=== PATIENT | female | born 1955 | race African-American/Black ===

== ENCOUNTER 2023-08-07 09:52 | Outpatient (REF) | payer OTHER, SELFPAY ==
--- NOTE | ~2023-08-07 | XR_ITS ---
X-RAY BILATERAL KNEES CLINICAL HISTORY: Pain. COMPARISON: No relevant prior studies are available for comparison. TECHNIQUE: Lateral and sunrise views of both knees. AP standing view of both knees. FINDINGS: No fracture or subluxation. Severe joint space narrowing and subcortical sclerosis of the medial and patellofemoral compartments in both knees, slightly more advanced in the right knee. Very prominent tricompartmental marginal osteophytes bilaterally. Chondrocalcinosis in the lateral compartment of the right knee. Small joint effusion in the right knee. XR/XR knee RT 3V IMPRESSION: 1. No acute fractures or malalignment. 2. Severe bilateral osteoarthritis, slightly more advanced in the right knee. 3. Small right knee joint effusion.
--- NOTE | ~2023-08-07 | XR_ITS ---
X-RAY BILATERAL KNEES CLINICAL HISTORY: Pain. COMPARISON: No relevant prior studies are available for comparison. TECHNIQUE: Lateral and sunrise views of both knees. AP standing view of both knees. FINDINGS: No fracture or subluxation. Severe joint space narrowing and subcortical sclerosis of the medial and patellofemoral compartments in both knees, slightly more advanced in the right knee. Very prominent tricompartmental marginal osteophytes bilaterally. Chondrocalcinosis in the lateral compartment of the right knee. Small joint effusion in the right knee. XR/XR knee LT 3V IMPRESSION: 1. No acute fractures or malalignment. 2. Severe bilateral osteoarthritis, slightly more advanced in the right knee. 3. Small right knee joint effusion.
== END 2023-08-07 09:53 | disposition home or self-care (01) ==
LOC: HO.HOSX 09:52
PROVIDERS: Visit Provider Orthopaedic Surgery
DX: M17.0 Bilateral primary osteoarthritis of knee (principal)
CPT/HCPCS: 73562; 99202

== ENCOUNTER 2023-08-07 10:20 | Outpatient (AMB) | payer OTHER, SELFPAY ==
--- NOTE | 2023-08-07 10:31 | A.OFFVIS_ITS ---
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 Patient reports that she has had ongoing bilateral knee pain for years now. right worse than left. she has increased pain when ambulating stairs. She takes Tylenol which helps and Voltaren which does not help. She has taken falls on multiple occasions due to instability. She does hear a cracking and popping in the knee. PFSH Surgical History (Updated 08/07/23 @ 10:41 by Nora Mendoza CMA) History of hysterectomy H/O bariatric surgery Hx of cholecystectomy Social History (Updated 08/07/23 @ 10:41 by Nora Mendoza CMA) Current occupational status: retired Physical Exam Vital Signs: BMI result Body Mass Index 36.3 Const General: cooperative, healthy appearing, no acute distress and well groomed Orientation/consciousness: oriented to person and oriented to place HEENT Head: Yes normal to inspection, Yes normocephalic and Yes atraumatic Eyes General: appearance normal, both eyes and all related structures Alignment and Position: alignment normal Conjunctivae: conjunctivae normal EOM: EOMs intact bilaterally Neck Neck: Yes normal visual inspection and Yes trachea midline Resp Other: No rerpiratory distress Effort & Inspection: normal respiratory effort and able to speak in complete sentences GI Other: No abdominal distension Back/Spine/Pelvis Cervical Spine: normal cervical lordosis and cervical ROM normal Skin General skin exam: no rashes or lesions noted Neuro General: oriented to person, oriented to place and gait normal Extrem Other: Varus alignement bilateral knees R>L mikld medial joint line tenderness minimal gait antalgia right knee varus thrust Results Reviewed Results Reviewed: I personally reviewed relevant radiographs. Severe varus pattern OA bilateral knees Assessment & Plan Assessment & Plan (1) Bilateral primary osteoarthritis of knee: Code(s): M17.0 - Bilateral primary osteoarthritis of knee Plan: Severe radiographic evidence of OA with suprisinbgly mild symptoms. Discussed treatment options. She will see me if she wants anything but, at this time, she does not want any intervention. Orders: Orders XR knee standing BI 08/07/23 M25.569 - Pain in unspecified knee Coding Level of Care Code New Pt Level 3 (02711) Diagnoses Bilateral primary osteoarthritis of knee M17.0
[2023-08-07 10:37] VITALS: BMI 36.3
== END 2023-08-07 11:01 | disposition home or self-care (01) ==
PROVIDERS: Visit Provider Orthopaedic Surgery
DX: M17.0 Bilateral primary osteoarthritis of knee (principal)
CPT/HCPCS: 99203

== ENCOUNTER 2024-04-11 21:18 | Emergency (ER) | payer OTHER, SELFPAY ==
--- NOTE | 2024-04-11 | ECG_ITS ---
Test Reason : CHEST PAIN Blood Pressure : / mmHG Vent. Rate : 081 BPM Atrial Rate : 081 BPM P-R Int : 142 ms QRS Dur : 080 ms QT Int : 408 ms P-R-T Axes : 058 022 043 degrees QTc Int : 473 ms Normal sinus rhythm Nonspecific ST and T wave abnormality Abnormal ECG No previous ECGs available Referred By: Generic ED Physician Electronically Signed By:DOMINIQUE GODWIN
--- NOTE | ~2024-04-11 | CT_ITS ---
CT/CT abdomen pelvis w IV con IMPRESSION: Small umbilical and supraumbilical hernias containing fat. No evidence of bowel obstruction. Status post cholecystectomy. Mild intrahepatic and extrahepatic biliary duct dilatation. Small right renal cyst. Fleischner guidelines were followed. Electronically signed by: Maury Potter MD 04/12/2024 01:01 AM [facility] EXAMINATION: CT ABDOMEN AND PELVIS WITH CONTRAST CLINICAL INFORMATION: Pain. Concern for internal hernia. COMPARISON: None available. TECHNIQUE: Multidetector volumetric images were obtained from the superior aspect of the liver through the pubic symphysis following administration 85 mL of Omnipaque 350 intravenous contrast. Sagittal and coronal reformatted images were obtained on the technologist's workstation. Oral contrast: No This CT examination was performed using dose optimization techniques as appropriate, variously including the following: *Automated exposure control *Adjustment of mA and/or kV according to patient size (this includes techniques or standardized protocols for targeted exams where dose is matched to indication/reason for exam; i.e. extremities or head) *Use of iterative reconstruction technique DLP: 646 mGy-cm FINDINGS: LUNG BASES: The visualized lung bases are unremarkable. LIVER, GALLBLADDER, AND BILIARY TREE: The liver is normal in size, shape, and attenuation. No focal liver lesions are seen. There is mild intrahepatic biliary duct dilatation. The common bile duct measures up to 1 cm. There has been a prior cholecystectomy. PANCREAS: Unremarkable. SPLEEN: Unremarkable. ADRENAL GLANDS: Unremarkable. KIDNEYS AND URETERS: The kidneys are normal in size, shape, and attenuation. No hydronephrosis, hydroureter, or calculi seen. No perinephric stranding. There is a subcentimeter cyst mid pole right kidney. BLADDER: Unremarkable. GASTROINTESTINAL TRACT: The small and large bowel are unremarkable. The appendix is unremarkable. ABDOMINAL WALL: There is a minimal umbilical hernia containing fat. There is a small supraumbilical hernia also containing fat. LYMPH NODES: Normal. VASCULAR: Unremarkable. PELVIC VISCERA: Unremarkable. OSSEOUS STRUCTURES: Unremarkable.
[2024-04-11 21:33] VITALS: BP 171/88; BP 188/90; PULSE 80; PULSE 90; RESP 19; TEMP 36.8; O2SAT 98; O2SAT 99; BMI 32.1
[2024-04-11 21:52] LABS: MANUAL DIFF FLAG NO
[2024-04-11 21:53] LABS: Basophils Percent Auto 0.2 % (0-2); Hematocrit 37.6 % (37.0-47.0); Hemoglobin 12.5 g/dl (12.0-16.0); Imm Gran Abs Auto 0.02 X10*3/uL (0.00-0.03); Imm Gran Pct Auto 0.2 % (0.0-0.4); Lymphocytes Absolute Auto 0.7 X10*3/uL (1.2-4.9); Lymphocytes Percent Auto 8.5 % (20-40); Mean Corpuscular HGB Conc 33.2 g/dl (31.0-35.0); Mean Corpuscular Hemoglobin 30.6 pg (27.0-33.0); Mean Corpuscular Volume 91.9 fL (80.0-98.0); Mean Platelet Volume 8.4 fL (9.4-12.3); Monocytes Absolute Auto 0.3 X10*3/uL (0.1-1.2); Monocytes Percent Auto 3.1 % (2-11); Neutrophils Absolute Auto 7.1 x10*3/uL (2.0-8.3); Platelet Count 274 X10*3/uL (160-400); Red Blood Count 4.09 X10*6/uL (4.20-5.50); Red Cell Distribution Width 12.7 % (11.0-16.0)
[2024-04-11 22:03] LABS: Appearance Urine Clear; Color Urine Yellow; Glucose Urine UA 100 mg/dL (Negative); Leukocyte Esterase Urine Negative (Negative); Nitrite Urine Negative (Negative); Specific Gravity - Urine 1.015 (1.005-1.025); Urine Blood Negative (Negative); Urine Ketones 15 mg/dL (Negative); Urine Protein Negative (Neg-Trace)
[2024-04-11] MEDS: ondansetron HCL 4 MG/2 ML VIAL IVPUSH (22:04)
[2024-04-11 22:05] LABS: Bacteria Urine None Seen (None Seen); Hyaline Casts Urine 0-2 /LPF (0-2); RBC Urine 0-2 /HPF (0-2); Squamous Epithelial Cell Urine 0-2 /HPF (0-2); WBC Urine 0-5 /HPF (0-5)
--- NOTE | 2024-04-11 22:13 | ED_ITS ---
HPI - Abdominal Pain General Chief Complaint: Abdominal Pain Stated Complaint: Increasing Ab pain, severe vomiting all day Time Seen by Provider: 04/11/24 21:59 Source: patient Mode of arrival: EMS Limitations: no limitations History of Present Illness ED Provider: stan STOKES narrative: Patient is 69 years old history of hypertension depression status post cholecystectomy and gastric bypass surgery about 5 years ago comes here for acute onset of mid abdominal pain started around 06:00 followed by multiple vomiting episodes and mid abdominal pain had a small bowel movement not passing enough gas now no history of any complication post gastric bypass no fever no chills Related Data Home Medications ?Medication ?Instructions ?Recorded ?Confirmed atenolol 100 mg tablet 100 mg PO DAILY 08/07/23 semaglutide 1 mg/dose (4 mg/3 mL) 1 mg subcut QWEEK 08/07/23 subcutaneous pen injector (Ozempic) valsartan 80 mg tablet 80 mg PO DAILY 08/07/23 venlafaxine 150 mg 150 mg PO DAILY 08/07/23 capsule,extended release 24 hr Previous Rx's ?Medication ?Instructions ?Recorded ondansetron 4 mg disintegrating 4 mg PO Q6-8H PRN nausea and 04/12/24 tablet vomiting #7 tabs Allergies Allergy/AdvReac Type Severity Reaction Status Date / Time No Known Allergies Allergy Verified 04/11/24 21:38 Review of Systems Review of Systems Yes all other systems are reviewed and are negative [facility] Past Medical History Medical History (Updated 04/12/24 @ 03:05 by Brandon Hussein MD) Depression Hypertension Surgical History History of hysterectomy H/O bariatric surgery Hx of cholecystectomy Social History Social History Smoked in Last 30 Days: No Use of substances other than those prescribed or required for medical reasons: No Advance Directives: No Advance Directives Information Provided: No Do you have a plan to hurt others: No Plan Current occupational status: retired Physical Exam ED Vital Signs: Vital Signs - 24 hr 04/11/24 22:33 04/12/24 03:02 04/12/24 03:29 Temperature 98.1 F 98.1 F Pulse Rate 78 78 Respiratory Rate 18 17 17 Blood Pressure 150/87 H 150/87 H Pulse Oximetry 96 96 Oxygen Delivery Method Room Air Room Air BMI result Body Mass Index 32.1 Appearance: Alert. Oriented X3. No acute distress. Eyes: No pallor or icterus ENT: Pharynx normal. Oral Mucosa moist Neck: Normal inspection. Neck supple. CVS: Normal heart rate and rhythm. Pulses normal. Respiratory: No respiratory distress. Equal air entry bilateral, no wheezing/rales/rhonchi Abdomen: Soft and tenderness in mid abdomen diffuse guarding no rebound tenderness Bowel sounds are present, no mass palpable, no CVA tenderness Skin: Skin warm and dry. Normal skin color. Normal skin turgor. Extremities: No lower extremity edema. No calf tenderness Neuro: Oriented X 3. Medical Decision Making Medical Decision Making [facility] Narrative: Patient's diffuse abdominal pain status contrast negative labs are stable felt much better after IV discharge patient home advised to follow with bariatric surgeon/PCP Differential Diagnosis Differential Diagnoses: The differential diagnosis associated with the presentation includes Small bowel obstruction/internal hernia Lab Data [facility] Lab Attestation statement: I reviewed the patient's lab results. 04/11/24 21:48 04/11/24 22:35 Labs: Lab Results 04/11/24 04/11/24 04/11/24 Range/Units 21:41 21:48 21:56 WBC 8.0 (4.8-10.8) X10*3/uL RBC 4.09 L (4.20-5.50) X10*6/uL Hgb 12.5 (12.0-16.0) g/dl Hct 37.6 (37.0-47.0) % MCV 91.9 (80.0-98.0) fL MCH 30.6 (27.0-33.0) pg MCHC 33.2 (31.0-35.0) g/dl RDW 12.7 (11.0-16.0) % Plt Count 274 (160-400) X10*3/uL MPV 8.4 L (9.4-12.3) fL Immature Gran % (Auto) 0.2 (0.0-0.4) % Neut % (Auto) 88.0 H (45-73) % Lymph % (Auto) 8.5 L (20-40) % [place] % (Auto) 3.1 (2-11) % Eos % (Auto) 0.0 (0-4) % Baso % (Auto) 0.2 (0-2) % Lymph # (Auto) 0.7 L (1.2-4.9) X10*3/uL [place] # (Auto) 0.3 (0.1-1.2) X10*3/uL Eos # (Auto) 0.0 (0.0-0.4) X10*3/uL Baso # (Auto) 0.0 (0.0-0.2) X10*3/uL Abs Immat Gran (auto) 0.02 (0.00-0.03) X10*3/uL Absolute Neuts (auto) 7.1 (2.0-8.3) x10*3/uL Absolute Nucleated RBC 0.000 (0.0-0.012) X10*3/uL Nucleated RBC % (auto) 0.0 (0.0-0.2) /100WBC Sodium (135-145) mmol/L Potassium (3.3-5.1) mmol/L Chloride (96-108) mmol/L Carbon Dioxide (22-29) mmol/L Anion Gap (12-20) BUN (9-16) mg/dL Creatinine (0.5-1.4) mg/dL Estim Creat Clear Calc Estimated GFR Random Glucose (60-115) mg/dL Lactic Acid (0.5-2.0) mmol/L Lactic Acid F/U @ 2Hr (0.5-2.0) mmol/L Calcium (8.4-10.2) mg/dL Total Bilirubin (0.0-1.0) mg/dL AST (5-31) U/L ALT (0-31) U/L Alkaline Phosphatase (39-117) U/L Troponin I High Sens (<3.5-17.0) ng/L B-Natriuretic Peptide Cancelled Total Protein (6.5-8.0) g/dL Albumin (3.5-5.0) g/dL Lipase (8-78) U/L Urine Color Yellow Urine Appearance Clear Urine pH 8.0 (5.0-9.0) Ur Specific [place] 1.015 (1.005-1.025) Urine Protein Negative (Neg-Trace) mg/dL Urine Glucose (UA) 100 H (Negative) mg/dL Urine Ketones 15 (Negative) mg/dL Urine Blood Negative (Negative) Urine Nitrite Negative (Negative) Ur Leukocyte Esterase Negative (Negative) Urine RBC 0-2 (0-2) /HPF Urine WBC 0-5 (0-5) /HPF Ur Squamous Epith Cells 0-2 (0-2) /HPF Urine Bacteria None Seen (None Seen) Hyaline Casts 0-2 (0-2) /LPF Influenza Type A (PCR) NEGATIVE (Negative) Influenza Type B (PCR) NEGATIVE (Negative) RSV RNA Qual (PCR) NEGATIVE (Negative) SARS-CoV-2 RNA (RT-PCR) NEGATIVE (Negative) 04/11/24 04/12/24 Range/Units 22:35 01:13 WBC (4.8-10.8) X10*3/uL RBC (4.20-5.50) X10*6/uL Hgb (12.0-16.0) g/dl Hct (37.0-47.0) % MCV (80.0-98.0) fL MCH (27.0-33.0) pg MCHC (31.0-35.0) g/dl RDW (11.0-16.0) % Plt Count (160-400) X10*3/uL MPV (9.4-12.3) fL Immature Gran % (Auto) (0.0-0.4) % Neut % (Auto) (45-73) % Lymph % (Auto) (20-40) % [place] % (Auto) (2-11) % Eos % (Auto) (0-4) % Baso % (Auto) (0-2) % Lymph # (Auto) (1.2-4.9) X10*3/uL [place] # (Auto) (0.1-1.2) X10*3/uL Eos # (Auto) (0.0-0.4) X10*3/uL Baso # (Auto) (0.0-0.2) X10*3/uL Abs Immat Gran (auto) (0.00-0.03) X10*3/uL Absolute Neuts (auto) (2.0-8.3) x10*3/uL Absolute Nucleated RBC (0.0-0.012) X10*3/uL Nucleated RBC % (auto) (0.0-0.2) /100WBC Sodium 140 (135-145) mmol/L Potassium 3.4 (3.3-5.1) mmol/L Chloride 105 (96-108) mmol/L Carbon Dioxide 22 (22-29) mmol/L Anion Gap 16 (12-20) BUN 8 L (9-16) mg/dL Creatinine 0.71 (0.5-1.4) mg/dL Estim Creat Clear Calc 79.3 Estimated GFR > 60 Random Glucose 119 H (60-115) mg/dL Lactic Acid 3.3 H* (0.5-2.0) mmol/L Lactic Acid F/U @ 2Hr 1.2 (0.5-2.0) mmol/L Calcium 9.1 (8.4-10.2) mg/dL Total Bilirubin 1.1 H (0.0-1.0) mg/dL AST 57 H (5-31) U/L ALT 31 (0-31) U/L Alkaline Phosphatase 75 (39-117) U/L Troponin I High Sens < 2.7 (<3.5-17.0) ng/L B-Natriuretic Peptide Total Protein 7.0 (6.5-8.0) g/dL Albumin 4.4 (3.5-5.0) g/dL Lipase 12 (8-78) U/L Urine Color Urine Appearance Urine pH (5.0-9.0) Ur Specific [place] (1.005-1.025) Urine Protein (Neg-Trace) mg/dL Urine Glucose (UA) (Negative) mg/dL Urine Ketones (Negative) mg/dL Urine Blood (Negative) Urine Nitrite (Negative) Ur Leukocyte Esterase (Negative) Urine RBC (0-2) /HPF Urine WBC (0-5) /HPF Ur Squamous Epith Cells (0-2) /HPF Urine Bacteria (None Seen) Hyaline Casts (0-2) /LPF Influenza Type A (PCR) (Negative) Influenza Type B (PCR) (Negative) RSV RNA Qual (PCR) (Negative) SARS-CoV-2 RNA (RT-PCR) (Negative) Independent Interpretation I performed an independent interpretation of an: CT Scan Radiology Impression Discussion of test interpretation with radiology: I have reviewed the radiologist's reading. Radiologist Impression: [address] [address] [address] Scan Report Signed Patient: Denise Renee MR#: [id number] : 1955 Acct:[id number] Age/Sex: 69 / F ADM Date: 04/11/24 Loc: HO.ED Attending Dr: Ordering Physician: Brandon Hussein MD Date of Service: 04/12/24 Procedure(s): CT abdomen pelvis w IV con Accession Number(s): [id number] cc: Physician,Unknown ; Brandon Hussein MD~ EXAMINATION: CT ABDOMEN AND PELVIS WITH CONTRAST CLINICAL INFORMATION: Pain. Concern for internal hernia. COMPARISON: None available. TECHNIQUE: Multidetector volumetric images were obtained from the superior aspect of the liver through the pubic symphysis following administration 85 mL of Omnipaque 350 intravenous contrast. Sagittal and coronal reformatted images were obtained on the technologist's workstation. Oral contrast: No This CT examination was performed using dose optimization techniques as appropriate, variously including the following: *Automated exposure control *Adjustment of mA and/or kV according to patient size (this includes techniques or standardized protocols for targeted exams where dose is matched to indication/reason for exam; i.e. extremities or head) *Use of iterative reconstruction technique DLP: 646 mGy-cm FINDINGS: LUNG BASES: The visualized lung bases are unremarkable. LIVER, GALLBLADDER, AND BILIARY TREE: The liver is normal in size, shape, and attenuation. No focal liver lesions are seen. There is mild intrahepatic biliary duct dilatation. The common bile duct measures up to 1 cm. There has been a prior cholecystectomy. PANCREAS: Unremarkable. SPLEEN: Unremarkable. ADRENAL GLANDS: Unremarkable. KIDNEYS AND URETERS: The kidneys are normal in size, shape, and attenuation. No hydronephrosis, hydroureter, or calculi seen. No perinephric stranding. There is a subcentimeter cyst mid pole right kidney. BLADDER: Unremarkable. GASTROINTESTINAL TRACT: The small and large bowel are unremarkable. The appendix is unremarkable. ABDOMINAL WALL: There is a minimal umbilical hernia containing fat. There is a small supraumbilical hernia also containing fat. LYMPH NODES: Normal. VASCULAR: Unremarkable. PELVIC VISCERA: Unremarkable. OSSEOUS STRUCTURES: Unremarkable. CT/CT abdomen pelvis w IV con IMPRESSION: Small umbilical and supraumbilical hernias containing fat. No evidence of bowel obstruction. Status post cholecystectomy. Mild intrahepatic and extrahepatic biliary duct dilatation. Small right renal cyst. Fleischner guidelines were followed. Electronically signed by: Maury Potter MD 04/12/2024 01:01 AM EST Medications Administered Discontinued Medications Generic Name Dose Route Start Last Admin Trade Name Freq PRN Reason Stop Dose Admin Lactated Ringer's 1,000 mls @ 999 mls/hr 04/11/24 22:30 04/12/24 00:03 Lr IV 04/11/24 23:30 Infused .Q1H1M IDNRA Infusion Piperacillin Sod/Tazobactam 50 mls @ 100 mls/hr 04/11/24 23:01 04/12/24 00:03 Sod 3.375 gm/ Sodium Chloride IV 04/11/24 23:30 Infused ONCE ONE Infusion Iohexol 85 ml 04/12/24 00:28 04/12/24 00:29 Iohexol 350 Mg/Ml 100 Ml Infus..Btl IV 04/12/24 00:29 85 ml ONCE ONE Administration Morphine Sulfate 4 mg 04/11/24 22:23 04/11/24 22:33 Morphine Sulfate 4 Mg/Ml Cartridge IVPUSH 04/11/24 22:24 4 mg ONCE ONE Administration Protocol Ondansetron HCl 4 mg 04/11/24 22:03 04/11/24 22:04 Ondansetron Hcl 4 Mg/2 Ml Vial IVPUSH 04/11/24 22:04 4 mg ONCE ONE Administration Discharge Plan Discharge Clinical Impression: Gastroenteritis Patient Disposition: Home, Self-Care Instructions: Acute Nausea and Vomiting (ED) Additional Instructions: Drink plenty of fluids Medicine for nausea as prescribed Follow with PCP as needed Your CT scan of the abdomen is essentially negative Follow up with your bariatric surgeon if pain continues Prescriptions: New ondansetron 4 mg tablet,disintegrating 4 mg PO Q6-8H PRN (Reason: nausea and vomiting) Qty: 7 0RF No Action venlafaxine 150 mg capsule,extended release 24hr 150 mg PO DAILY atenolol 100 mg tablet 100 mg PO DAILY valsartan 80 mg tablet 80 mg PO DAILY Ozempic 1 mg/dose (4 mg/3 mL) pen injector 1 mg subcut QWEEK Interventions: ED Discharge Assessment Last Done: 04/12/24 03:29 Discharge Date/Time: 04/12/24 03:33 Print Language: Sami
[2024-04-11 22:31] LABS: Influenza A PCR NEGATIVE (Negative); Influenza B PCR NEGATIVE (Negative); Resp Syncy Virus RNA Qual PCR NEGATIVE (Negative); SARS COV2 PCR INHOUSE NEGATIVE (Negative)
[2024-04-11 22:33] VITALS: RESP 18
[2024-04-11] MEDS: Lactated Ringers 1,000 ML 999 ML IV (22:33)
[2024-04-11] MEDS: Morphine Sulfate 4 MG/ML CARTRIDGE IVPUSH (22:33)
[2024-04-11 23:02] LABS: Lactic Acid 3.3 mmol/L (0.5-2.0)
[2024-04-11 23:06] LABS: Troponin-I High Sensitivity < 2.7 ng/L (<3.5-17.0)
[2024-04-11 23:16] LABS: Albumin Level 4.4 g/dL (3.5-5.0); Alkaline Phosphatase 75 U/L (39-117); Anion Gap 16 (12-20); Aspartate Amino Transferase 57 U/L (5-31); Bilirubin Total 1.1 mg/dL (0.0-1.0); Blood Urea Nitrogen 8 mg/dL (9-16); Calcium 9.1 mg/dL (8.4-10.2); Carbon Dioxide 22 mmol/L (22-29); Chloride 105 mmol/L (96-108); Creatinine Clr Calc Pharmacy 79.3; Estimated Glomerular Filt Rate > 60; Glucose Random 119 mg/dL (60-115); Lipase 12 U/L (8-78); Potassium 3.4 mmol/L (3.3-5.1); Sodium 140 mmol/L (135-145)
--- NOTE | 2024-04-11 23:23 | PC.NURSE ---
pt biba from home, a&ox4, respirations even and unlabored. pt reporting onset of mid abdominal pain, chest tightness, nausea and vomiting, pt reports she has thrown up multiple times she is unable to count. pt given 324 asprin prior to arrival. 22G placed in right wrist. labs obtained. normal sinus on tele 80-82bpm.
--- NOTE | 2024-04-11 23:24 | PC.NURSE ---
pt hard stick, multiple attempts made. at bedside attempting untrasound guided iv.
[2024-04-11 23:30] LABS: Alanine Aminotransferase 31 U/L (0-31)
[2024-04-11] MEDS: Piperacillin Sodium/Tazobactam 3.375 GM in 0.9 % Sodium Chloride 50 ML IV (23:33)
--- NOTE | 2024-04-12 00:03 | PC.NURSE ---
18G placed in right neck by provider.
[2024-04-12] MEDS: iohexoL 350 MG/ML 100 ML INFUS..BTL 85 ML IV (00:29)
[2024-04-12 00:40] LABS: Reflex Lactate? Lactic Acid Added
[2024-04-12 01:31] LABS: ~Lactic Acid-LAB USE ONLY 1.2 mmol/L (0.5-2.0)
[2024-04-12 03:02] VITALS: BP 150/87; PULSE 78; RESP 17; TEMP 36.7; O2SAT 96
[2024-04-12 03:29] VITALS: BP 150/87; PULSE 78; RESP 17; TEMP 36.7; O2SAT 96
== END 2024-04-12 03:33 | disposition home or self-care (01) ==
PROVIDERS: Emergency Provider Internal Medicine
DX: K52.9 Noninfective gastroenteritis and colitis, unspecified (principal); Z03.818 Encounter for observation for suspected exposure to other biological agents ruled out; R11.10 Vomiting, unspecified; R10.9 Unspecified abdominal pain; R07.9 Chest pain, unspecified; I10 Essential (primary) hypertension; Z79.899 Other long term (current) drug therapy
CPT/HCPCS: 0241U; 36415; 74177; 80053; 81001; 83605; 83690; 83880; 84484; 85025; 87040; 93005; 96361; 96374; 96375; 99285; J2270; J2405; J2543; J7120; Q9967

== ENCOUNTER → 2024-04-11 21:35 | Outpatient (BNV) | payer OTHER, SELFPAY | PROVIDERS: Emergency Provider Internal Medicine; Visit Provider Internal Medicine | DX: R07.9 Chest pain, unspecified (principal); R94.31 Abnormal electrocardiogram [ECG] [EKG] | CPT/HCPCS: 93010 ==

== ENCOUNTER 2024-11-20 10:37 | Inpatient (IN) | payer MEDICARE, OTHER, SELFPAY ==
--- NOTE | 2024-11-20 | ECG_ITS ---
Test Reason : r/o prolonged qt Blood Pressure : */* mmHG Vent. Rate : 71 BPM Atrial Rate : 71 BPM P-R Int : 130 ms QRS Dur : 84 ms QT Int : 428 ms P-R-T Axes : 29 8 2 degrees QTcB Int : 465 ms Normal sinus rhythm Nonspecific ST abnormality Abnormal ECG When compared with ECG of 11-Apr-2024 21:35, No significant change was found Referred By: Abraham Khanna Electronically Signed By: Anatoliy Roa
--- NOTE | ~2024-11-20 | CT_ITS ---
EXAMINATION: CT HEAD WITHOUT CONTRAST CLINICAL INFORMATION: nonfocal AMS, fall on 11/06 COMPARISON: None available. TECHNIQUE: Contiguous axial imaging was performed from the skull base to vertex without intravenous administration of contrast. This CT examination was performed using dose optimization techniques as appropriate, variously including the following: *Automated exposure control *Adjustment of mA and/or kV according to patient size (this includes techniques or standardized protocols for targeted exams where dose is matched to indication/reason for exam; i.e. extremities or head) *Use of iterative reconstruction technique DLP: 755 mGy-cm FINDINGS: No acute cortical disruption in the bony calvarium. No acute intracranial hemorrhage, mass effect, midline shift, hydrocephalus or herniation. Vallejo-white matter differentiation is normal. Bilateral multifocal patchy deep periventricular white matter hypodensities involving centrum semiovale and alberto radiata. Old lacunar infarcts in the basal ganglia and extracapsular. Posterior cranial fossa contents demonstrated no acute hemorrhage or mass effect. Craniocervical junction demonstrates normal position of the cerebellar tonsils. Sellar/suprasellar region demonstrated no gross masses. There is an intrasellar CSF prominence suggesting diaphragmatic sella insufficiency. No air-fluid levels in the paranasal sinuses. Tympanic cavities and mastoid cells are aerated. Pneumatized petrous apices, bilaterally. Calcified plaques in the cavernous supracavernous segments both ICAs and V4 segments of the vertebral arteries. CT/CT head/brain wo IV con IMPRESSION: No acute fracture, bony calvarium. No acute intracranial hemorrhage. Small vessel occlusive disease. Atherosclerosis disease. Electronically signed by: Morro Funk MD 11/20/2024 01:30 PM EDT
--- NOTE | ~2024-11-20 | XR_ITS ---
EXAMINATION: XR HIP, LEFT CLINICAL INFORMATION: recent L hip fx, with repair COMPARISON: None available. TECHNIQUE: AP and oblique views, of the left hip. AP view pelvis. FINDINGS: Metallic prosthesis with an acetabular and femoral component well-seated in the osseous structures of the left hip without acute cortical disruption or malalignment. Small fragment of the lesser trochanter and the soft tissues of the superior aspect of the left coxofemoral joint. Mild sclerosis along the articular surface of the right acetabulum. Asymmetric joint space narrowing, right coxofemoral joint. No acute cortical disruption in the bony pelvis. Facet joint hypertrophy at L4-5 and L5-S1. No lytic or blastic lesions. XR/XR hip LT w PEL1V IMPRESSION: Total left hip arthroplasty prosthesis without acute fracture or dislocation. Mild osteoarthrosis, right hip. Electronically signed by: Morro Funk MD 11/20/2024 01:24 PM EDT
[2024-11-20 10:48] VITALS: BP 142/86; PULSE 70; RESP 16; TEMP 37; O2SAT 100; BMI 30.9
--- NOTE | 2024-11-20 12:15 | ED_ITS ---
HPI - Psych General Chief Complaint: Psychiatric Symptoms Stated Complaint: Sent from [facility] for eval Time Seen by Provider: 11/20/24 11:07 History of Present Illness ED Provider: aura HPI Narrative: 69 F tells me she had a suicide attempt, reports a lumbar Fx and L hip Fx repaired, cleared and sent to [facility] at [facility]. Patient reports a history of hypertension chronic depression. At the time of my initial evaluation no additional history able to be provided as daughter was not here. Patient tells me she fell 4 days ago had hip fracture surgery was briefly admitted and [place] and sent home where she has been with her daughter. Still reporting pain in the low back and left hip but she is able to ambulate with walker. No leg swelling difficulty breathing. Adherent with discharge medications from the hospital Related Data Home Medications ?Medication ?Instructions ?Recorded ?Confirmed atenolol 100 mg tablet 100 mg PO DAILY 08/07/2302/06 venlafaxine 150 mg 150 mg PO DAILY 08/07/2302/06 capsule,extended release 24 hr aspirin 81 mg tablet 81 mg PO BID 11/20/24 losartan 50 mg tablet 50 mg PO DAILY 11/20/2402/06 oxycodone 5 mg tablet 5 mg PO Q8H PRN Moderate Nolvia n 11/20/24 11/20/24 (Scale Score 5-6) acetaminophen 650 mg 1,300 mg PO Q8H PRN knee nolvia n 11/21/24 11/21/24 tablet,extended release melatonin 2 tab sublingual BEDTIME PRN Sleep 11/21/24 11/21/24 Allergies Allergy/AdvReac Type Severity Reaction Status Date / Time No Known Allergies Allergy Verified 11/20/24 11:06 [facility] Past Medical History Medical History (Updated 11/25/24 @ 14:21 by Shanell Connelly DNP) Depression Hypertension Surgical History (Updated 11/24/24 @ 01:37 by Syeda Lofton NP) History of hysterectomy H/O bariatric surgery Hx of cholecystectomy Social History Social History Household Members: Children Household Members Other:: [facility] Housing: House Do you presently have visiting nurse or other home services: No Alcohol intake: former Comment: 5 minute checks Patient Tobacco Use Status: Never used Tobacco Smoked in Last 30 Days: No Use of substances other than those prescribed or required for medical reasons: No Currently Displaying Signs/Symptoms of Drug Intoxication Withdrawal: No Have you been hit, kicked, punched, or otherwise hurt by someone within the past year? If so, by whom?: No Do you feel safe in your current relationship?: No Current Relationship Is there a partner from a previous relationship who is making you feel unsafe now?: No Are you made to feel afraid or neglected: No Advance Directives: No Advance Directives Information Provided: Yes Do you have thoughts of harming others: None Do you have a plan to hurt others: No Plan Recently lost weight without trying: No Eating poorly because of decreased appetite: No Nutrition Risks: No Nutritional Risk Patient : No service: No Current occupational status: retired Sexual orientation: Straight/Heterosexual Physical Exam 2 Vital Signs: Vital Signs: Last Vital Signs Temp 97.5 F 11/26/24 08:32 Pulse 73 11/26/24 08:32 Resp 18 11/26/24 08:32 BP 135/75 11/26/24 08:32 Pulse Ox 98 11/26/24 08:32 O2 Del Method Room Air 11/26/24 08:32 BMI result Body Mass Index 30.9 EXAM: Gen: Alert, awake, well appearing, well hydrated. Head: Atraumatic Eyes: Anicteric, Normal conjunctiva. ENT: Moist mucosa, no pallor. ? Neck: Supple. Skin: ?No observable rash or bruising on exposed or examined skin Respiratory: Breathing comfortably, No distress.Clear to auscultation bilaterally, symmetric chest expansion, No wheeze, rales, ronchi. Cardiovascular: Regular rate and rhythm. No murmurs or rub. Well perfused periphery, warm extremities. No edema. ? Abdominal: No focal tenderness. Soft, no objective distension. No palpable masses or obvious organomegaly. ?No guarding, no rebound tenderness or other peritoneal findings. : No flank tenderness. Neuro: Alert. Gross movement of all extremities intact. ?No ataxia. Sensation intact. Face symmetric. Cranial nerve 2-12 intact Psych: Calm. Cooperative. MSK: No grossly visible deformity. Vital signs: See flowsheet Course Reevaluation(s) Reevaluation #1: 11/21/2024; 10;00 DR. Barry's progress note. VSS, care team input is appreciated patient is section 12 now, bed search is underway, no events reported by nursing overnight, will continue monitoring. Time: 10:00 Reevaluation #2: Time: 08:29 Date: 11/22/24 Provider: Nadine Bailon, DO Patient in physician observation for psychiatric evaluation.? No acute events reported overnight. No current complaints. VS stable.? Patient is in bed search status Will continue to monitor. Reevaluation #3: Time: 15:59 Date: 11/22/24 Provider: Nadine Bailon DO Physician observation ended at 359pm. Patient to be admitted as inpatient to psychiatry. Medications Administered Generic Name Dose Route Start Last Admin Trade Name Freq PRN Reason Stop Dose Admin Acetaminophen 650 mg 11/22/24 12:52 11/25/24 09:58 Acetaminophen 325 Mg Tablet PO 650 mg Q6H PRN Administration Headache/Pain, Scale 1-10 Aspirin 81 mg 11/20/24 12:30 11/26/24 08:36 Aspirin Enteric Coated 81 Mg Tablet. PO 81 mg BID INDRA Administration Atenolol 100 mg 11/21/24 09:00 11/26/24 08:35 Atenolol 100 Mg Tablet PO 100 mg DAILY INDRA Administration Protocol Docusate Sodium 100 mg 11/25/24 21:00 11/26/24 08:35 Docusate Sodium 100 Mg Capsule PO 100 mg BID INDRA Administration Ferrous Sulfate 324 mg 11/26/24 09:00 11/26/24 08:35 Ferrous Sulfate 324 Mg Tablet. PO 324 mg DAILY INDRA Administration Losartan Potassium 50 mg 11/21/24 09:00 11/26/24 08:35 Losartan Potassium 50 Mg Tablet PO 50 mg DAILY INDRA Administration Protocol Melatonin 6 mg 11/22/24 21:00 11/25/24 20:16 Melatonin 3 Mg Tablet PO 6 mg BEDTIME INDRA Administration Morphine Sulfate 15 mg 11/20/24 12:19 11/20/24 16:24 Morphine Sulfate Immed Release 15 Mg Tablet PO 15 mg Q4H PRN Administration Pain, Severe (Pain Scale 7-10) Oxycodone HCl 5 mg 11/20/24 16:30 11/24/24 20:25 Oxycodone Hcl Immed Release 5 Mg Tablet PO 5 mg Q8H PRN Administration Moderate Pain (Scale Score 5-6) Senna 17.2 mg 11/25/24 21:00 11/25/24 20:17 Sennosides 8.6 Mg Tablet PO 17.2 mg BEDTIME INDRA Administration Trazodone HCl 50 mg 11/22/24 12:52 11/24/24 02:32 Trazodone Hcl 50 Mg Tablet PO 50 mg BEDTIME PRN Administration Insomnia Venlafaxine HCl 225 mg 11/26/24 09:00 11/26/24 08:34 Venlafaxine Hcl Er 75 Mg Cap.Er.24h PO 225 mg DAILY INDRA Administration Discontinued Medications Generic Name Dose Route Start Last Admin Trade Name Freq PRN Reason Stop Dose Admin Melatonin 9 mg 11/20/24 21:13 11/20/24 21:16 Melatonin 3 Mg Tablet PO 11/20/24 21:14 9 mg ONCE ONE Administration Venlafaxine HCl 150 mg 11/21/24 09:00 11/25/24 08:27 Venlafaxine Hcl Er 150 Mg Cap.Er.24h PO 150 mg DAILY INDRA Administration Venlafaxine HCl 37.5 mg 11/23/24 09:00 11/25/24 08:27 Venlafaxine Hcl Er 37.5 Mg Cap.Er.24h PO 37.5 mg DAILY INDRA Administration Medical Decision Making Medical Decision Making MDM Narrative: Medical Decision Makin-year-old female with depression recent suicide attempt, overdose with Effexor or early October. Now living at daughter's house. Sent for crisis/psychiatric evaluation possible inpatient level of care. Patient is still suicidal. No acute medical issues to address here. X-ray shows left total hip replacement hardware without obvious complication or periprosthetic fracture. The patient has a known lumbar fracture no clinical history or evidence to suggest complication of this no gross motor deficits. Care team evaluation recommends inpatient level of care. Preliminary Favored Differential Diagnosis: Depression with suicidality, healing left hip fracture, healing lumbar fracture among additional considered etiologies Testing Interpreted Independently: ECG sinus rhythm rate 71 QTC 465, AL 130 no acute ischemic changes. Radiology or Lab testing Results Reviewed: No actionable findings Consults: Care team, psychiatry Independent Historians/External Chart Reviews: Not Applicable Social Determinants of Health Impacting MDM/Planning: Not Applicable Lab Data 11/20/24 12:55 11/23/24 06:50 Labs: Lab Results 11/20/24 11/20/24 Range/Units 12:38 12:55 WBC 7.6 (4.8-10.8) X10*3/uL RBC 3.54 L (4.20-5.50) X10*6/uL Hgb 10.3 L (12.0-16.0) g/dl Hct 32.9 L (37.0-47.0) % MCV 92.9 (80.0-98.0) fL MCH 29.1 (27.0-33.0) pg MCHC 31.3 (31.0-35.0) g/dl RDW 14.4 (11.0-16.0) % Plt Count 509 H D (160-400) X10*3/uL MPV 8.0 L (9.4-12.3) fL Immature Gran % (Auto) 0.8 H (0.0-0.4) % Neut % (Auto) 70.1 (45-73) % Lymph % (Auto) 21.1 (20-40) % [place] % (Auto) 6.5 (2-11) % Eos % (Auto) 1.1 (0-4) % Baso % (Auto) 0.4 (0-2) % Lymph # (Auto) 1.6 (1.2-4.9) X10*3/uL [place] # (Auto) 0.5 (0.1-1.2) X10*3/uL Eos # (Auto) 0.1 (0.0-0.4) X10*3/uL Baso # (Auto) 0.0 (0.0-0.2) X10*3/uL Abs Immat Gran (auto) 0.06 H (0.00-0.03) X10*3/uL Absolute Neuts (auto) 5.3 (2.0-8.3) x10*3/uL Absolute Nucleated RBC 0.000 (0.0-0.012) X10*3/uL Nucleated RBC % (auto) 0.0 (0.0-0.2) /100WBC Sodium 144 (135-145) mmol/L Potassium 3.9 (3.3-5.1) mmol/L Chloride 108 (96-108) mmol/L Carbon Dioxide 29 (22-29) mmol/L Anion Gap 11 L (12-20) BUN 14 (9-16) mg/dL Creatinine 0.64 (0.5-1.4) mg/dL Estim Creat Clear Calc 86.3 Estimated GFR > 60 Random Glucose 107 (60-115) mg/dL Calcium 9.2 (8.4-10.2) mg/dL Magnesium 2.6 (1.6-2.6) mg/dL Total Bilirubin 0.9 (0.0-1.0) mg/dL AST 22 (5-31) U/L ALT < 6 (0-31) U/L Alkaline Phosphatase 108 (39-117) U/L Total Protein 6.5 (6.5-8.0) g/dL Albumin 3.8 (3.5-5.0) g/dL Urine Color Yellow Urine Appearance Clear Urine pH 5.5 (5.0-9.0) Ur Specific [place] 1.020 (1.005-1.025) Urine Protein Negative (Neg-Trace) mg/dL Urine Glucose (UA) Negative (Negative) mg/dL Urine Ketones Negative (Negative) mg/dL Urine Blood Negative (Negative) Urine Nitrite Negative (Negative) Ur Leukocyte Esterase Negative (Negative) Urine Opiates Screen Not Detected (Not Detect) Ur Buprenorphine Scrn Not Detected (Not Detect) ng/mL Ur Oxycodone Screen Positive H (Not Detect) ng/mL Urine Methadone Screen Not Detected (Not Detect) ng/mL Urine Fentanyl Screen Not Detected (Not Detect) Ur Barbiturates Screen Not Detected (Not Detect) Ur Phencyclidine Scrn Not Detected (Not Detect) Ur Amphetamines Screen Not Detected (Not Detect) U Benzodiazepines Scrn Not Detected (Not Detect) Urine Cocaine Screen Not Detected (Not Detect) U Marijuana (THC) Screen POSITIVE H (Not Detect) Ethyl Alcohol < 10 mg/dL Discharge Plan Discharge Clinical Impression: Suicidal ideation Patient Disposition: Admitted As Inpatient Interventions: Admission Worksheet (ED) Last Done: 11/22/24 16:08 Discharge Date/Time: 11/22/24 16:23
--- NOTE | 2024-11-20 12:36 | PC.NURSE ---
Daughter to bring hospital d/c paperwork in today around 2:30pm, daughter stating patient has hx of brain tumor in the past. Patient is alert but stating had hip surgery 4 days ago- daughter stating surgery was 11/06/24.
[2024-11-20] MEDS: Aspirin Enteric Coated 81 MG TABLET.DR PO ×2 (12:50→20:56)
[2024-11-20 13:07] LABS: MANUAL DIFF FLAG NO
[2024-11-20 13:09] LABS: Hematocrit 32.9 % (37.0-47.0); Hemoglobin 10.3 g/dl (12.0-16.0); Imm Gran Abs Auto 0.06 X10*3/uL (0.00-0.03); Imm Gran Pct Auto 0.8 % (0.0-0.4); Lymphocytes Absolute Auto 1.6 X10*3/uL (1.2-4.9); Mean Corpuscular HGB Conc 31.3 g/dl (31.0-35.0); Mean Corpuscular Hemoglobin 29.1 pg (27.0-33.0); Mean Corpuscular Volume 92.9 fL (80.0-98.0); NRBC Abs Auto 0.000 X10*3/uL (0.0-0.012); NRBC Pct Auto 0.0 /100WBC (0.0-0.2); Platelet Count 509 X10*3/uL (160-400); Red Blood Count 3.54 X10*6/uL (4.20-5.50); White Blood Count 7.6 X10*3/uL (4.8-10.8)
[2024-11-20 13:10] LABS: Cannabinoid Screen Urine POSITIVE (Not Detect)
[2024-11-20 13:11] LABS: Appearance Urine Clear; Glucose Urine UA Negative (Negative); PH 5.5 (5.0-9.0); Specific Gravity - Urine 1.020 (1.005-1.025)
--- NOTE | 2024-11-20 13:14 | PC.NURSE ---
Pt currently in Xray with pod staff and security
[2024-11-20 13:25] LABS: Alanine Aminotransferase < 6 U/L (0-31); Albumin Level 3.8 g/dL (3.5-5.0); Alkaline Phosphatase 108 U/L (39-117); Anion Gap 11 (12-20); Aspartate Amino Transferase 22 U/L (5-31); Blood Urea Nitrogen 14 mg/dL (9-16); Calcium 9.2 mg/dL (8.4-10.2); Carbon Dioxide 29 mmol/L (22-29); Chloride 108 mmol/L (96-108); Creatinine Clr Calc Pharmacy 86.3; Estimated Glomerular Filt Rate > 60; Magnesium 2.6 mg/dL (1.6-2.6); Potassium 3.9 mmol/L (3.3-5.1); Sodium 144 mmol/L (135-145); Total Protein 6.5 g/dL (6.5-8.0)
--- OUTSIDE RECORDS SUMMARY | 2024-11-20 13:52 | XMS_ITS | Clinical Summary ---
Author Organization [facility] Address [address] [place] [phone] Phone Care Team Providers Care Cemetery Manager Name Role Phone Physician, No Pcp Primary Care Provider Unavaila ble Allergies No known active allergies Medications losartan (COZAAR) 50 mg tablet Take 1 tablet (50 mg total) by mouth 1 (one) time each day. 30 each 5 4:29 PM EDT 11/15/19 25 025 Active atenoloL (TENORMIN) 100 mg tablet Take 1 tablet (100 mg total) by mouth 1 (one) time each day. 30 each 11/15/19 25 025 Active polyethylene glycol (MIRALAX) 17 gram packet Take 17 g by mouth 1 (one) time each day. 510 g 11/15/19 25 025 Active acetaminophen (TYLENOL) 500 mg tablet Take 2 tablets (1,000 mg total) by mouth every 6 (six) hours if needed for mild pain for up to 10 days. 30 tablet 11/14/19 25 025 Active senna-docusate (PERICOLACE) 8.6-50 mg per tablet Take 1 tablet by mouth 1 (one) time each day. 30 each 11/14/19 25 025 Active aspirin 81 mg EC tablet Take 1 tablet (81 mg total) by mouth 2 (two) times a day. 68 each 5 4:29 PM EDT 11/15/19 25 025 Active aspirin 81 mg EC tablet Take 1 tablet (81 mg total) by mouth 1 (one) time each day for 39 doses. 11/11/19 025 Discontinued acetaminophen (TYLENOL) 500 mg tablet Take 2 tablets (1,000 mg total) by mouth every 6 (six) hours if needed for mild pain for up to 10 days. 11/10/19 025 Discontinued oxyCODONE (ROXICODONE) 5 mg immediate release tablet Take 1 tablet (5 mg total) by mouth every 6 (six) hours if needed for moderate pain. Max Daily Amount: 20 mg 11/10/19 025 Discontinued senna-docusate (PERICOLACE) 8.6-50 mg per tablet Take 1 tablet by mouth 1 (one) time each day. 11/10/19 025 Discontinued polyethylene glycol (MIRALAX) 17 gram packet Take 17 g by mouth 1 (one) time each day for 3 days. 11/10/19 025 Discontinued atenoloL (TENORMIN) 100 mg tablet Take 1 tablet (100 mg total) by mouth daily. 025 Discontinued losartan (COZAAR) 50 mg tablet Take 1 tablet (50 mg total) by mouth daily. 025 Discontinued hydroCHLOROthi azide (HYDRODIURIL) 25 mg tablet Take 1 tablet (25 mg total) by mouth daily. 025 Discontinued(St op Taking at Discharge) aspirin 81 mg EC tablet Take 1 tablet (81 mg total) by mouth 1 (one) time each day for 36 doses. 36 each 11/15/19 025 Discontinued oxyCODONE (ROXICODONE) 5 mg immediate release tablet Take 1 tablet (5 mg total) by mouth every 8 (eight) hours if needed for moderate pain for up to 4 days. Max Daily Amount: 15 mg 12 each 5 4:29 PM EDT 11/14/19 025 Active Problems Problem Noted Date Diagnosed Date Suicide attempt ([facility] V24, [facility] V28) 11/08 Intentional drug overdose ([facility] V24, [facility] V28) 11/08/2024 Fall 11/08/2024 Hypokalemia 11/08/2024 Closed comminuted intertroch anteric fracture of left femur, initial encounter ([facility] V24, [facility] V28) 11/06/2024 Closed displaced fracture of base of neck of left femur ([facility] V24, [facility] V28) 11/05/2024 Encounters Date Type Department Care Team Description 11/19/2024 Telephone Neurosurgery - [place] [address] [facility] [place] [address] Luis Armando Gaspar MD bandage question 11/11/2024 Telephone [facility] [address] [place] [address] Chance Mei sinadia 11/06/2024 4:54 PM EDT Anesthesia Event [facility] [address] [place] [phone] Josue Foss MD Irizarry, Cheryl M, CRNA 11/06/2024 2:41 PM EDT - 11/06/2024 5:36 PM EDT Surgery [facility] [address] [place] [phone] Angie Hanks MD HEMIARTHROPLASTY HIP [[id number] (CPT )] 11/05/2024 6:12 PM EDT - 11/13/2024 6:42 PM EDT Hospital Encounter [facility] General 7-[address] [place] [phone] Levy Bettencourt MD Shalom, Edward, MD Dhobale, MD Rad Serna Roy A Jr., MD Vega, MD Nav Closed comminuted intertrochanteric fracture of left femur, initial encounter ([facility] V24, [facility] V28) (Primary Dx); Current severe episode of major depressive disorder without psychotic features without prior episode ([facility] V24, [facility] V28); Suicide attempt ([facility] V24, [facility] V28); Closed displaced basicervical fracture of left femur, initial encounter ([facility] V24, [facility] V28) Discharge Disposition: Home or Self Care from Last 3 Months Social History Tobacco Use Types Packs/Day Years Used Date Smoking Tobacco: Never Assessed Housing Instability Answer Date Recorde d Are you worried that in the next 2 months you may not have stable housing? No 11/05/2024 Food Access & Nutrition Answer Date Rec orded Do you have access to a vari ety of food including fruits and vegetables? Yes 11/05/2024 Access to Healthcare Answer Date Record ed Within the last 3 months, ho w many times did you visit the emergency department for your medical care? 1 11/05/2024 Health Literacy Answer Date Recorded How often do you need to hav e someone help you when you read instructions, pamphlets, or other written material from your doctor or pharmacy? Never 11/05/2024 Caregiver: How often do you need to have someone help you when you read instructions, pamphlets, or other written material from your doctor or pharmacy? Not on file 11/05/2024 Financial Risk Answer Date Recorded How hard is it for you to pa y for the very basics like food, housing, medical care, and air conditioning / heating? Not very hard 11/05/2024 Transportation Answer Date Recorded Has the lack of transportati on kept you from meetings, work, or from getting things needed for daily living? No Has the lack of transportati on kept you from medical appointments or from getting medications? No 11/05/2024 Social Isolation Answer Date Recorded How often do you feel lonely or isolated from th ose around you? Rarely 11/05/2024 Food Risk Answer Date Recorded Within the past 12 months we worried whether our food would run out before we got money to buy more. Never true 11/05/2024 Within the past 12 months th e food we bought just didn't last and we didn't have money to get more. Never true 11/05/2024 Dependent Care Answer Date Recorded Do you need help finding or paying for care for your loved ones. For example, early childhood education instructor or elderly care for an older adult? No 11/05/2024 Education Answer Date Recorded Do you think completing more education or training, like finishing a GED, going to college, or learning a trade, would be helpful for you? No 11/05/2024 Employment and Income Answer Date Recor ded During the last four weeks, have you been actively looking for work? No 11/05/2024 Living Situation Answer Date Recorded What is your living situation? 0 11/05/2024 Comments Unknown Sex and Gender Information Value Date Recorded Sex Assigned at Not on file Legal Sex Female 6:04 PM EDT Gender Identity Not on file Sexual Orientation Not on file Last Filed Vital Signs Vital Sign Reading Time Taken Comments Blood Pressure 130/96 11/13/2024 5:03 PM EDT Pulse 80 11/13/2024 5:03 PM EDT Temperature 37.2 C (99 F) 11/13/2024 5:03 PM EDT Respiratory Rate 18 11/13/2024 9:29 AM EDT Oxygen Saturation 100% 11/13/2024 5:03 PM EDT Inhaled Oxygen Concentration - - Weight 77.1 kg (170 lb) 11/05/2024 9:04 PM EDT Height 165.1 cm (5' 5 ) 11/05/2024 9:04 PM EDT Body Mass Index 28.29 11/05/2024 9:04 PM EDT Plan of Treatment Upcoming Encounters Date Type Department Care Team (Late st Contact Info) Description 02/04/2025 9:30 AM EDT Office Visit Neurosurgery - [address] [place] [id number] Luis Armando Gaspar MD [address] [phone] Health Maintenance Due Date Last Done Comments Breast Cancer Screening 1955 DTaP,Tdap,and Td Vaccines (1 - Tdap) 1972 Pneumococcal Vaccine: 50+ Years (1 of 1 - PCV) 2003 Zoster Vaccines (1 of 2) 2003 COVID-19 Vaccine (1 - season) 2024 Cholesterol Screening (Lipid Panel) 11/06/2024 Colorectal Cancer Screening: Colonoscopy 11/06/2024 Depression Screening 11/06/2024 Hepatitis C Screening 11/06/2024 Medicare Annual Wellness Visit 11/06/2024 Osteoporosis Screening (Bone Density Screening) 11/06/2024 Influenza Vaccine (#1) 2025 Social Influencers of Health Screening 11/05/2025 11/05/2024 Hypertension/CHF/CAD Annual BMP Blood Test 11/11/2025 11/11/2024, 11/10/2024, 11/09/2024, Additional history exists Falls Risk Assessment 11/13/2025 11/13/2024 RSV Immunization Adult Patients (1 - 1-dose 75+ series) 2028 HIB Vaccines Aged Out No longer eligi ble based on patient's age to complete this topic HPV Vaccines Aged Out No longer eligi ble based on patient's age to complete this topic Hepatitis A Vaccines Aged Out No long er eligible based on patient's age to complete this topic Hepatitis B Vaccines Aged Out No long er eligible based on patient's age to complete this topic IPV Vaccines Aged Out No longer eligi ble based on patient's age to complete this topic MMR Vaccines Aged Out No longer eligi ble based on patient's age to complete this topic Meningococcal ACWY Vaccine Aged Out N o longer eligible based on patient's age to complete this topic Meningococcal B Vaccine Aged Out No l onger eligible based on patient's age to complete this topic RSV Immunization Patients Under 20 months Aged Out No longer eligible based on patient's age to complete this topic Varicella Vaccines Aged Out No longer eligible based on patient's age to complete this topic Medical Devices Implanted Type Area Co Founder And Cto Device Identifier Shelf Expiration Date Model / Serial / Lot Cement Bone Simplex Full Dose - Sna - [id number] Implanted:Qty : 1 on 11/06/2024 by Angie Hanks MD at [facility] Bone Cement Left: Hip [employer] 03/14/2027 6191-1-001 / NA / [id number] Cement Bone Simplex Full Dose - Sna - [id number] Implanted:Qty : 1 on 11/06/2024 by Angie Hanks MD at [facility] Bone Cement Left: Hip [employer] 03/14/2027 6191-1-001 / NA / [id number] Hip Stem Hfx [id number] Omnifit - Sna - [id number] Implanted:Qty : 1 on 11/06/2024 by Angie Hanks MD at [facility] Joints Hip Left: Hip [employer] 04/17/2029 [id number] / NA / [id number] Plug Bone Med - Sna - [id number] Implanted:Qty : 1 on 11/06/2024 by Angie Hanks MD at [facility] Joints Hip Left: Hip [employer] 01/09/2029 6215-5-011 / NA / [id number] Hip Spacr Distl 12mm - Sna - [id number] Implanted:Qty : 1 on 11/06/2024 by Angie Hanks MD at [facility] Joints Hip Left: Hip [employer] 09/17/2028 [id number] / NA / [id number] Hip Mod Endo Head 46mm - Sna - [id number] Implanted:Qty : 1 on 11/06/2024 by Angie Hanks MD at [facility] Joints Hip Left: Hip [employer] 08/26/2029 [id number] / NA / [id number] Hip Slv C-Tapr Unitrax +10mm - Sna - [id number] Implanted:Qty : 1 on 11/06/2024 by Angie Hanks MD at [facility] Joints Hip Left: Hip [employer] 09/18/2028 6942-7-085 / NA / [id number] Procedures Procedure Name Priority Date/Time Associated Diagnosis Comments CBC WITH AUTO DIFFERENTIAL Routine 11/13/2024 6:27 AM EDT CBC AND DIFFERENTIAL Routine 11/13/2024 6:27 AM EDT CBC WITH AUTO DIFFERENTIAL Routine 11/12/2024 8:22 AM EDT CBC AND DIFFERENTIAL Routine 11/12/2024 8:22 AM EDT CBC WITH AUTO DIFFERENTIAL Routine 11/11/2024 6:01 AM EDT CBC AND DIFFERENTIAL Routine 11/11/2024 6:01 AM EDT BASIC METABOLIC PANEL Routine 11/11/2024 6:01 AM EDT CBC WITH AUTO DIFFERENTIAL Routine 11/10/2024 8:52 AM EDT CBC AND DIFFERENTIAL Routine 11/10/2024 8:52 AM EDT BASIC METABOLIC PANEL Routine 11/10/2024 8:52 AM EDT CBC WITH AUTO DIFFERENTIAL Routine 11/09/2024 7:10 AM EDT CBC AND DIFFERENTIAL Routine 11/09/2024 7:10 AM EDT MAGNESIUM Routine 11/09/2024 7:10 AM EDT BASIC METABOLIC PANEL Routine 11/09/2024 7:10 AM EDT CBC WITH AUTO DIFFERENTIAL Routine 11/08/2024 7:59 AM EDT CBC AND DIFFERENTIAL Routine 11/08/2024 7:59 AM EDT MAGNESIUM Routine 11/08/2024 7:59 AM EDT BASIC METABOLIC PANEL Routine 11/08/2024 7:59 AM EDT CBC WITH AUTO DIFFERENTIAL Routine 11/07/2024 10:21 AM EDT CBC AND DIFFERENTIAL Routine 11/07/2024 10:21 AM EDT MAGNESIUM Routine 11/07/2024 10:21 AM EDT BASIC METABOLIC PANEL Routine 11/07/2024 10:21 AM EDT XR PELVIS 1-2 VIEWS STAT 11/06/2024 8 :35 PM EDT OXYGEN THERAPY, ADULT Routine 11/06/2024 8:02 PM EDT OXYGEN THERAPY, ADULT Routine 11/06/2024 8:02 PM EDT [place] HEMIARTHROPLASTY HIP PARTIAL 11/06/2024 4:38 PM EDT Closed displaced basicervical fracture of left femur, initial encounter (CMS/HCC V24, CMS/HCC V28) COMPLETE BLOOD COUNT Routine 11/06/2024 7:00 AM EDT PHOSPHORUS Routine 11/06/2024 7:00 AM EDT MAGNESIUM Routine 11/06/2024 7:00 AM EDT COMPREHENSIVE METABOLIC PANEL Routine 11/06/2024 7:00 AM EDT XR PELVIS 1-2 VIEWS STAT 11/06/2024 5 :44 AM EDT XR FEMUR 2+ VIEWS LEFT STAT 12:32 AM EDT XR KNEE 1-2 VIEWS LEFT STAT 12:32 AM EDT XR HIP 2-3 VIEWS LEFT STAT 11/06/2024 12:[address] CHEST/ABDOMEN/PELVIS WO CONTRAST STAT 11/05/2024 11:[address] CERVICAL SPINE WO CONTRAST STAT 11/05/2024 11:[address] HEAD WO CONTRAST STAT 11/05/2024 1 1:10 PM EDT ECG 12-LEAD STAT 11/05/2024 9:38 PM EDT LACTATE, WITH REFLEX Timed 11/05/2024 9:28 PM EDT POCT GLUCOSE BLOOD Routine 11/05/2024 9: 08 PM EDT TROPONIN I HIGH SENSITIVITY STAT 11/05/2024 8:15 PM EDT THYROID STIMULATING HORMONE WITH REFLEX FREE T4 STAT 11/05/2024 7:37 PM EDT VENOUS BLOOD GAS STAT 11/05/2024 7:37 PM EDT CBC WITH AUTO DIFFERENTIAL STAT 11/05/2024 7:37 PM EDT SALICYLATE LEVEL STAT 11/05/2024 7:37 PM EDT ACETAMINOPHEN LEVEL STAT 11/05/2024 7 :37 PM EDT PROTHROMBIN TIME WITH INR STAT 11/05/2024 7:37 PM EDT TROPONIN I HIGH SENSITIVITY STAT 11/05/2024 7:37 PM EDT CREATINE KINASE STAT 11/05/2024 7:37 PM EDT ETHANOL STAT 11/05/2024 7:37 PM EDT COMPREHENSIVE METABOLIC PANEL STAT 11/05/2024 7:37 PM EDT LIPASE STAT 11/05/2024 7:37 PM EDT LACTATE, WITH REFLEX STAT 11/05/2024 7:37 PM EDT MAGNESIUM STAT 11/05/2024 7:37 PM EDT CBC AND DIFFERENTIAL STAT 11/05/2024 7:37 PM EDT ECG 12-LEAD STAT 11/05/2024 6:23 PM EDT from Last 3 Months Results * (ABNORMAL) CBC auto differential (11/13/2024 6:27 AM EDT) Only the most recent of8 resultswithin the time period is included. [facility] WBC 7.9 4.0 - 10.5 K/mcL LAB HEMETOLOGY METHOD 11/13/2024 6:50 AM EDT [facility] RBC 3.45(L) 4.20 - 5.40 M/mcL LAB HEMETOLOGY METHOD 11/13/2024 6:50 AM EDT [facility] Hemoglobin 10.2(L) 12.5 - 16.0 g/dL LAB HEMETOLOGY METHOD 11/13/2024 6:50 AM EDT [facility] Hematocrit 31.2(L) 37.0 - 47.0 % LAB HEMETOLOGY METHOD 11/13/2024 6:50 AM EDT [facility] MCV 90.3 78.0 - 100.0 FL LAB HEMETOLOGY METHOD 11/13/2024 6:50 AM EDT [facility] MCH 29.6 25.0 - 33.0 pcg LAB HEMETOLOGY METHOD 11/13/2024 6:50 AM EDT [facility] MCHC 32.8 32.0 - 36.0 g/dL LAB HEMETOLOGY METHOD 11/13/2024 6:50 AM EDT [facility] RDW 14.5 12.1 - 16.2 % LAB HEMETOLOGY METHOD 11/13/2024 6:50 AM EDT [facility] Platelets 372 150 - 450 K/mcL LAB HEMETOLOGY METHOD 11/13/2024 6:50 AM EDT [facility] MPV 6.6(L) 7.4 - 11.4 FL LAB HEMETOLOGY METHOD 11/13/2024 6:50 AM EDT [facility] Neutrophils Relative 68.6 44.0 - 74.0 % LAB HEMETOLOGY METHOD 11/13/2024 6:50 AM EDT [facility] Lymphocytes Relative 20.9 20.0 - 48.0 % LAB HEMETOLOGY METHOD 11/13/2024 6:50 AM EDT [facility] Monocytes Relative 8.6 2.0 - 12.0 % LAB HEMETOLOGY METHOD 11/13/2024 6:50 AM EDT [facility] Eosinophils Relative 1.4 0.0 - 6.0 % LAB HEMETOLOGY METHOD 11/13/2024 6:50 AM EDT [facility] Basophils Relative 0.5 0.0 - 2.0 % LAB HEMETOLOGY METHOD 11/13/2024 6:50 AM EDT [facility] Neutrophils Absolute 5.40 1.80 - 7.80 K/mcL LAB HEMETOLOGY METHOD 11/13/2024 6:50 AM EDT [facility] Lymphocytes Absolute 1.60 1.00 - 3.20 K/mcL LAB HEMETOLOGY METHOD 11/13/2024 6:50 AM EDT [facility] Monocytes Absolute 0.70 0.00 - 0.80 K/mcL LAB HEMETOLOGY METHOD 11/13/2024 6:50 AM EDT [facility] Eosinophils Absolute 0.10 0.00 - 0.50 K/mcL LAB HEMETOLOGY METHOD 11/13/2024 6:50 AM EDT [facility] Basophils Absolute 0.00 0.00 - 0.20 K/mcL LAB HEMETOLOGY METHOD 11/13/2024 6:50 AM EDT [facility] Blood Venous blood specimen / Unknown Venipuncture / Unknown 11/13/2024 6:27 AM EDT 11/13/2024 6:41 AM EDT Jace Leroy Jr., MD LAB BLOOD ORDERABLES Fin al Result [facility] [address] [place] [address], * (ABNORMAL) Basic metabolic panel (11/11/2024 6:01 AM EDT) Only the most recent of5 resultswithin the time period is included. Sodium 142 135 - 145 mmol/L LAB CHEMISTRY METHOD 11/11/2024 7:09 AM EDT [facility] Potassium 3.6 3.5 - 5.1 mmol/L LAB CHEMISTRY METHOD 11/11/2024 7:09 AM EDT [facility] Chloride 101 98 - 107 mmol/L LAB CHEMISTRY METHOD 11/11/2024 7:09 AM EDT [facility] CO2 33(H) 24 - 32 mmol/L LAB CHEMISTRY METHOD 11/11/2024 7:09 AM EDT [facility] Anion Gap 8 5 - 14 LAB CHEMISTRY METHOD 11/11/2024 7:09 AM EDT [facility] Glucose 108 70 - 199 mg/dL LAB CHEMISTRY METHOD 11/11/2024 7:09 AM EDT [facility] BUN 6(L) 7 - 17 mg/dL LAB CHEMISTRY METHOD 11/11/2024 7:09 AM EDT [facility] Creatinine 0.40(L) 0.50 - 1.00 mg/dL LAB CHEMISTRY METHOD 11/11/2024 7:09 AM EDT [facility] eGFR 106 >=60 mL/min/1. 73m2 LAB CHEMISTRY METHOD 11/11/2024 7:09 AM EDT [facility] Comment:Calculation based on the Chronic Kidney Disease Epidemiology Collaboration (CKD-EPI) equation refit without adjustment for race. BUN/Creatinine Ratio 15.0 12.0 - 20.0 LAB CHEMISTRY METHOD 11/11/2024 7:09 AM EDT [facility] Calcium 8.8 8.4 - 10.2 mg/dL LAB CHEMISTRY METHOD 11/11/2024 7:09 AM EDT [facility] Blood Venous blood specimen / Unknown Venipuncture / Unknown 11/11/2024 6:01 AM EDT 11/11/2024 6:39 AM EDT us Jace Leroy Jr., MD LAB BLOOD ORDERABLES Fin al Result [facility] [address] [place] [address], [place] [phone] * Magnesium (11/09/2024 7:10 AM EDT) Only the most recent of5 resultswithin the time period is included. Magnesium 2.1 1.7 - 2.8 mg/dL LAB CHEMISTRY METHOD 11/09/2024 8:05 AM EDT [facility] Blood Venous blood specimen / Unknown Venipuncture / Unknown 11/09/2024 7:10 AM EDT 11/09/2024 7:25 AM EDT us Jace Leroy Jr., MD LAB BLOOD ORDERABLES Fin al Result [facility] [address] [place] [address], * XR Pelvis 1-2 Views (11/06/2024 8:35 PM EDT) Only the most recent of2 resultswithin the time period is included. Anatomical Region Laterality Modality Body, Pelvis Radiographic Jackelin ging 11/06/2024 10:4 1 PM EDT Impressions 11/06/2024 10:51 PM EDT 1. Left hip arthroplasty hardware without evidence of loosening or periprosthetic fracture. 2. No evidence of acute osseous abnormality. Report reviewed and signed by : Dr. Trisha Booth MD on 11/06/2024 10:51 PM. Workstation Name - [id number] -------- FINAL REPORT -------- Dictated By: Trisha Booth Dictated Date: 11/06/2024 22:41 ET Assigned Physician: Trisha Booth Reviewed and Electronically Signed By: Trisha Booth Signed Date: 11/06/2024 22:51 ET Workstation ID: [id number] Transcribed By: Self Edit Transcribed Date: 11/06/2024 22:42 ET Narrative 11/06/2024 10:51 PM EDT EXAMINATION: Radiography of the Pelvis CLINICAL INDICATION: OTHER s/p Hemiarthroplasty; please do a low AP pelvis and include entire implant NUMBER OF VIEWS: 1 COMPARISON: Same day XR FINDINGS: OSSEOUS STRUCTURES: No evidence for acute fracture. No aggressive osseous abnormality. Iliopectineal and ilioischial lines are preserved. JOINTS: No dislocation. SOFT TISSUES: No soft tissue emphysema or radiopaque foreign body. HARDWARE: Left hip arthroplasty hardware without evidence of loosening or periprosthetic fracture. Procedure Note Trisha Booth MD - 11/06/2024 EXAMINATION: Radiography of the Pelvis CLINICAL INDICATION: OTHER s/p Hemiarthroplasty; please do a low AP pelvis and include entireimplant NUMBER OF VIEWS: 1 COMPARISON: Same day XR FINDINGS: OSSEOUS STRUCTURES: No evidence for acute fracture. No aggressive osseous abnormality. Iliopectineal and ilioischial lines are preserved. JOINTS: No dislocation. SOFT TISSUES: No soft tissue emphysema or radiopaque foreign body. HARDWARE: Left hip arthroplasty hardware without evidence of loosening orperiprosthetic fracture. IMPRESSION: 1. Left hip arthroplasty hardware without evidence of loosening orperiprosthetic fracture. 2. No evidence of acute osseous abnormality. Report reviewed and signed by : Dr. Trisha Booth MD on 11/06/2024 10:51 PM.Workstation Name - [id number] -------- FINAL REPORT -------- Dictated By: Trisha Booth Dictated Date: 11/06/2024 22:41 ET Assigned Physician: Trisha Booth Reviewed and Electronically Signed By: Trisha Booth Signed Date: 11/06/2024 22:51 ET Workstation ID: [id number] Transcribed By: Self Edit Transcribed Date: 11/06/2024 22:42 ET us Erica Lozada MD IMG XR PROCEDURES Final R esult * (ABNORMAL) Complete blood count (11/06/2024 7:00 AM EDT) WBC 9.7 4.0 - 10.5 K/[facility] LAB HEMETOLOGY METHOD 11/06/2024 7:[address] [facility] RBC 4.08(L) 4.20 - 5.40 M/mcL LAB HEMETOLOGY METHOD 11/06/2024 7:26 AM EDT [facility] Hemoglobin 12.1(L) 12.5 - 16.0 g/dL LAB HEMETOLOGY METHOD 11/06/2024 7:26 AM EDT [facility] Hematocrit 36.6(L) 37.0 - 47.0 % LAB HEMETOLOGY METHOD 11/06/2024 7:26 AM EDT [facility] MCV 89.7 78.0 - 100.0 FL LAB HEMETOLOGY METHOD 11/06/2024 7:26 AM EDT [facility] MCH 29.7 25.0 - 33.0 pcg LAB HEMETOLOGY METHOD 11/06/2024 7:26 AM EDT [facility] MCHC 33.1 32.0 - 36.0 g/dL LAB HEMETOLOGY METHOD 11/06/2024 7:26 AM EDT [facility] RDW 14.8 12.1 - 16.2 % LAB HEMETOLOGY METHOD 11/06/2024 7:26 AM EDT [facility] Platelets 224 150 - 450 K/mcL LAB HEMETOLOGY METHOD 11/06/2024 7:26 AM EDT [facility] MPV 6.9(L) 7.4 - 11.4 FL LAB HEMETOLOGY METHOD 11/06/2024 7:26 AM EDT [facility] Blood Venous blood specimen / Unknown Venipuncture / Unknown 11/06/2024 7:00 AM EDT 11/06/2024 7:14 AM EDT us Pee Rust MD LAB BLOOD ORDERABLES Final Resu lt [facility] [address] [place] [id number], * Phosphorus (11/06/2024 7:00 AM EDT) Pathologist [facility] Phosphorus 2.8 2.5 - 4.5 mg/dL LAB CHEMISTRY METHOD 11/06/2024 7:53 AM EDT [facility] Blood Venous blood specimen / Unknown Venipuncture / Unknown 11/06/2024 7:00 AM EDT 11/06/2024 7:14 AM EDT Pee Rust MD LAB BLOOD ORDERABLES Final Resu lt [facility] [address] [place] [address], * (ABNORMAL) Comprehensive metabolic panel (11/06/2024 7:00 AM EDT) Only the most recent of2 resultswithin the time period is included. Pathologist [facility] Sodium 140 135 - 145 mmol/L LAB CHEMISTRY METHOD 11/06/2024 7:53 AM EDT [facility] Potassium 3.4(L) 3.5 - 5.1 mmol/L LAB CHEMISTRY METHOD 11/06/2024 7:53 AM T [facility] Chloride 104 98 - 107 mmol/L LAB CHEMISTRY METHOD 11/06/2024 7:53 AM EDT [facility] CO2 26 24 - 32 mmol/L LAB CHEMISTRY METHOD 11/06/2024 7:53 AM EDT [facility] Anion Gap 10 5 - 14 LAB CHEMISTRY METHOD 11/06/2024 7:53 AM EDT [facility] Glucose 85 70 - 199 mg/dL LAB CHEMISTRY METHOD 11/06/2024 7:53 AM EDT [facility] BUN 4(L) 7 - 17 mg/dL LAB CHEMISTRY METHOD 11/06/2024 7:53 AM EDT [facility] Creatinine 0.40(L) 0.50 - 1.00 mg/dL LAB CHEMISTRY METHOD 11/06/2024 7:53 AM EDT [facility] eGFR 106 >=60 mL/min/1. 73m2 LAB CHEMISTRY METHOD 11/06/2024 7:53 AM EDT [facility] Comment:Calculation based on the Chronic Kidney Disease Epidemiology Collaboration (CKD-EPI) equation refit without adjustment for race. BUN/Creatinine Ratio 10.0(L) 12.0 - 20.0 LAB CHEMISTRY METHOD 11/06/2024 7:53 AM EDT [facility] Calcium 8.7 8.4 - 10.2 mg/dL LAB CHEMISTRY METHOD 11/06/2024 7:53 AM EDT [facility] AST (SGOT) 30 5 - 40 unit/L LAB CHEMISTRY METHOD 11/06/2024 7:53 AM T [facility] ALT (SGPT) 11 7 - 52 unit/L LAB CHEMISTRY METHOD 11/06/2024 7:53 AM EDT [facility] Alkaline Phosphatase 75 34 - 104 unit/L LAB CHEMISTRY METHOD 11/06/2024 7:53 AM EDT [facility] Total Protein 6.4 6.4 - 8.5 g/dL LAB CHEMISTRY METHOD 11/06/2024 7:53 AM T [facility] Albumin 3.8 3.5 - 5.0 g/dL LAB CHEMISTRY METHOD 11/06/2024 7:53 AM EDT [facility] Total Bilirubin 1.5(H) 0.3 - 1.0 mg/dL LAB CHEMISTRY METHOD 11/06/2024 7:53 AM EDT [facility] Blood Venous blood specimen / Unknown Venipuncture / Unknown 11/06/2024 7:00 AM EDT 11/06/2024 7:14 AM EDT us Pee Rust MD LAB BLOOD ORDERABLES Final Resu lt [facility] [address] [facility] [place] [address], [place] [phone] * XR Femur 2+ Views Left (11/06/2024 12:32 AM EDT) Anatomical Region Laterality Modality Lower Extremities, Femur Left Radiogr aphic Imaging 11/06/2024 1:02 AM EDT Impressions 11/06/2024 1:02 AM EDT FINDINGS/IMPRESSION: Severely displaced fracture of the left femoral neck. No dislocation. Severe osteoarthritis at the knee joint Report reviewed and signed by : Dr. Tristen Monteiro on 11/06/2024 1:02 AM. Workstation Name - [id number] -------- FINAL REPORT -------- Dictated By: Tristen Monteiro Dictated Date: 11/06/2024 01:02 ET Assigned Physician: Tristen Monteiro Reviewed and Electronically Signed By: Tristen Monteiro Signed Date: 11/06/2024 01:02 ET Workstation ID: [id number] Transcribed By: Self Edit Transcribed Date: 11/06/2024 01:02 ET Narrative 11/06/2024 1:02 AM EDT XR FEMUR 2+ VIEWS LEFT HISTORY:69 years Female OTHER pain after fall COMPARISON:None Procedure Note Tristen Monteiro MD - 11/06/2024 XR FEMUR 2+ VIEWS LEFT HISTORY:69 years Female OTHER pain after fall COMPARISON:None IMPRESSION: FINDINGS/IMPRESSION: Severely displaced fracture of the left femoral neck. No dislocation.Severe osteoarthritis at the knee joint Report reviewed and signed by : Dr. Tristen Monteiro on 11/06/2024 1:02AM. Workstation Name - [id number] -------- FINAL REPORT -------- Dictated By: Tristen Monteiro Dictated Date: 11/06/2024 01:02 ET Assigned Physician: Tristen Monteiro Reviewed and Electronically Signed By: Tristen Monteiro Signed Date: 11/06/2024 01:02 ET Workstation ID: [id number] Transcribed By: Self Edit Transcribed Date: 11/06/2024 01:02 ET Levy Bettencourt MD IMG XR PROCEDURES Final Resul t * XR Knee 1-2 Views Left (11/06/2024 12:32 AM EDT) Anatomical Region Laterality Modality Lower Extremities, Knee Left Radiogra phic Imaging 11/06/2024 1:02 AM EDT Impressions 11/06/2024 1:02 AM EDT FINDINGS/IMPRESSION: No fracture or dislocation. Severe tricompartmental osteoarthritis with endplate sclerosis and osteophyte formation. There are intra-articular loose bodies. Report reviewed and signed by : Dr. Tristen Monteiro on 11/06/2024 1:02 AM. Workstation Name - [id number] -------- FINAL REPORT -------- Dictated By: Tristen Monteiro Dictated Date: 11/06/2024 01:02 ET Assigned Physician: Tritsen Monteiro Reviewed and Electronically Signed By: Tristen Monteiro Signed Date: 11/06/2024 01:02 ET Workstation ID: [id number] Transcribed By: Self Edit Transcribed Date: 11/06/2024 01:02 ET Narrative 11/06/2024 1:02 AM EDT XR KNEE 1-2 VIEWS LEFT HISTORY:69 years Female OTHER pain after fall COMPARISON:None Procedure Note Tristen Monteiro MD - 11/06/2024 XR KNEE 1-2 VIEWS LEFT HISTORY:69 years Female OTHER pain after fall COMPARISON:None IMPRESSION: FINDINGS/IMPRESSION: No fracture or dislocation. Severe tricompartmental osteoarthritis withendplate sclerosis and osteophyte formation. There are intra-articularloose bodies. Report reviewed and signed by : Dr. Tristen Monteiro on 11/06/2024 1:02AM. Workstation Name - [id number] -------- FINAL REPORT -------- Dictated By: Tristen Monteiro Dictated Date: 11/06/2024 01:02 ET Assigned Physician: Tristen Monteiro Reviewed and Electronically Signed By: Tristen Monteiro Signed Date: 11/06/2024 01:02 ET Workstation ID: [id number] Transcribed By: Self Edit Transcribed Date: 11/06/2024 01:02 ET Levy Bettencourt MD IMG XR PROCEDURES Final Resul t * XR Hip 2-3 Views Left (11/06/2024 12:31 AM EDT) Anatomical Region Laterality Modality Lower Extremities, Hip Left Radiograp hic Imaging 11/06/2024 1:01 AM EDT Impressions 11/06/2024 1:01 AM EDT FINDINGS/IMPRESSION: Severely displaced fracture of the left femoral neck. No dislocation Report reviewed and signed by : Dr. Tristen Monteiro on 11/06/2024 1:01 AM. Workstation Name - [id number] -------- FINAL REPORT -------- Dictated By: Tristen Monteiro Dictated Date: 11/06/2024 01:01 ET Assigned Physician: Tristen Monteiro Reviewed and Electronically Signed By: Tristen Monteiro Signed Date: 11/06/2024 01:01 ET Workstation ID: [id number] Transcribed By: Self Edit Transcribed Date: 11/06/2024 01:01 ET Narrative 11/06/2024 1:01 AM EDT XR HIP 2-3 VIEWS LEFT HISTORY:69 years Female fracture COMPARISON:None Procedure Note Tristen Monteiro MD - 11/06/2024 XR HIP 2-3 VIEWS LEFT HISTORY:69 years Female fracture COMPARISON:None IMPRESSION: FINDINGS/IMPRESSION: Severely displaced fracture of the left femoral neck. No dislocation Report reviewed and signed by : Dr. Tristen Monteiro on 11/06/2024 1:01AM. Workstation Name - [id number] -------- FINAL REPORT -------- Dictated By: Tristen Monteiro Dictated Date: 11/06/2024 01:01 ET Assigned Physician: Tristen Monteiro Reviewed and Electronically Signed By: Tristen Monteiro Signed Date: 11/06/2024 01:01 ET Workstation ID: [id number] Transcribed By: Self Edit Transcribed Date: 11/06/2024 01:01 ET Juan LEBLANC IMG XR PROCEDURES Final Result * CT Chest/Abdomen/Pelvis wo Contrast (11/05/2024 11:38 PM EDT) Anatomical Region Laterality Modality Body Computed Tomogra phy 11/05/2024 11:5 8 PM EDT Impressions 11/06/2024 12:06 AM EDT 1. No acute traumatic injury identified within the chest, abdomen or pelvis. 2. Mild acute superior endplate compression fracture at L2. 3. Left femoral neck fracture. 4. Enlarged multinodular thyroid gland with substernal component Report reviewed and signed by : Dr. rTisten Monteiro on 11/06/2024 12:06 AM. Workstation Name - [id number] -------- FINAL REPORT -------- Dictated By: Tristen Monteiro Dictated Date: 11/05/2024 23:58 ET Assigned Physician: Tristen Monteiro Reviewed and Electronically Signed By: Tristen Monteiro Signed Date: 11/06/2024 00:06 ET Workstation ID: [id number] Transcribed By: Self Edit Transcribed Date: 11/05/2024 23:58 ET Narrative 11/06/2024 12:[address] CHEST/ABDOMEN/PELVIS WO CONTRAST HISTORY: 69 years Female Elpra-cjeefha-fqipzv trauma, blunt ground level fall v syncope; Right hip and chest pain TECHNIQUE: CT chest, abdomen, and pelvis was performed without contrast. Multiplanar reformats were reviewed. Dose reduction techniques were used including automated exposure control and adjustment of mA and/or KV according to patient size. COMPARISON: None FINDINGS: The lack of intravenous contrast limits assessment of the abdominal viscera. Enlarged multinodular thyroid gland with substernal component. Heart is borderline enlarged. Coronary calcifications. No intrathoracic lymphadenopathy. No thoracic aortic aneurysm. Dependent atelectasis. No consolidation within the lungs. No pleural fluid and no pneumothorax. There is some motion artifact within the abdomen. Gallbladder is not well seen. No liver or splenic lesions. No peripancreatic inflammation. Adrenal glands are unremarkable. No renal stones and no hydronephrosis. Moderately distended bladder but no bladder wall thickening. No bowel obstruction. No free air and no ascites. Colonic diverticulosis. No hematomas. The appendix is normal. Moderate to severely displaced fracture of the left femoral neck. Mild acute superior endplate compression fracture at L2. Procedure Note Tristen Monteiro MD - 11/06/2024 CT CHEST/ABDOMEN/PELVIS WO CONTRAST HISTORY: 69 years Female Iienx-braxywr-mvtiuy trauma, blunt ground level fall v syncope; Right hip and chest pain TECHNIQUE: CT chest, abdomen, and pelvis was performed without contrast.Multiplanar reformats were reviewed. Dose reduction techniques were usedincluding automated exposure control and adjustment of mA and/or KVaccording to patient size. COMPARISON: None FINDINGS: The lack of intravenous contrast limits assessment of the abdominalviscera. Enlarged multinodular thyroid gland with substernal component. Heart isborderline enlarged. Coronary calcifications. No intrathoraciclymphadenopathy. No thoracic aortic aneurysm. Dependent atelectasis. Noconsolidation within the lungs. No pleural fluid and no pneumothorax. There is some motion artifact within the abdomen. Gallbladder is not wellseen. No liver or splenic lesions. No peripancreatic inflammation.Adrenal glands are unremarkable. No renal stones and no hydronephrosis.Moderately distended bladder but no bladder wall thickening. No bowelobstruction. No free air and no ascites. Colonic diverticulosis. Nohematomas. The appendix is normal. Moderate to severely displaced fracture of the left femoral neck. Mildacute superior endplate compression fracture at L2. IMPRESSION: 1. No acute traumatic injury identified within the chest, abdomen orpelvis. 2. Mild acute superior endplate compression fracture at L2. 3. Left femoral neck fracture. 4. Enlarged multinodular thyroid gland with substernal component Report reviewed and signed by : Dr. Tristen Monteiro on 11/06/2024 12:06AM. Workstation Name - [id number] -------- FINAL REPORT -------- Dictated By: Tristen Monteiro Dictated Date: 11/05/2024 23:58 ET Assigned Physician: Tristen Monteiro Reviewed and Electronically Signed By: Tristen Monteiro Signed Date: 11/06/2024 00:06 ET Workstation ID: [id number] Transcribed By: Self Edit Transcribed Date: 11/05/2024 23:58 ET us Levy Bettencourt MD IM CT PROCEDURES Final Resul t * CT Cervical Spine wo Contrast (11/05/2024 11:11 PM EDT) Anatomical Region Laterality Modality Spine, C-spine Computed Tomogra phy 11/05/2024 11:3 6 PM EDT Impressions 11/05/2024 11:39 PM EDT No acute abnormality in the cervical spine. Report reviewed and signed by : Dr. Tristen Monteiro on 11/05/2024 11:39 PM. Workstation Name - [id number] -------- FINAL REPORT -------- Dictated By: Tristen Monteiro Dictated Date: 11/05/2024 23:36 ET Assigned Physician: Tristen Monteiro Reviewed and Electronically Signed By: Tristen Monteiro Signed Date: 11/05/2024 23:39 ET Workstation ID: [id number] Transcribed By: Self Edit Transcribed Date: 11/05/2024 23:36 ET Narrative 11/05/2024 11:39 PM EDT PROCEDURE: CT CERVICAL SPINE WO CONTRAST HISTORY: 69 years Female Neck trauma (Age >= 65y) COMPARISON: None. TECHNIQUE: CT CERVICAL SPINE WO CONTRAST. Coronal and sagittal reformatted images were obtained. Three-dimensional volume rendering is generated on an independent workstation. FINDINGS: Moderate disc space narrowing at C5-6 and C6-7 with osteophyte formation. Partially visualized enlarged multinodular thyroid gland Facet alignment is maintained. No fracture. Vertebral body alignment is maintained. Procedure Note Tristen Monteiro MD - 11/05/2024 PROCEDURE: CT CERVICAL SPINE WO CONTRAST HISTORY: 69 years Female Neck trauma (Age >= 65y) COMPARISON: None. TECHNIQUE: CT CERVICAL SPINE WO CONTRAST. Coronal and sagittal reformattedimages were obtained. Three-dimensional volume rendering is generated [employer] independent workstation. FINDINGS: Moderate disc space narrowing at C5-6 and C6-7 with osteophyteformation. Partially visualized enlarged multinodular thyroid gland Facet alignment is maintained. No fracture. Vertebral body alignment ismaintained. IMPRESSION: No acute abnormality in the cervical spine. Report reviewed and signed by : Dr. Tristen Monteiro on 11/05/2024 11:39PM. Workstation Name - [id number] -------- FINAL REPORT -------- Dictated By: Tristen Monteiro Dictated Date: 11/05/2024 23:36 ET Assigned Physician: Tristen Monteiro Reviewed and Electronically Signed By: Tristen Monteiro Signed Date: 11/05/2024 23:39 ET Workstation ID: [id number] Transcribed By: Self Edit Transcribed Date: 11/05/2024 23:36 ET Levy Bettencourt MD [facility] CT PROCEDURES Final Resul t * CT Head wo Contrast (11/05/2024 11:10 PM EDT) Anatomical Region Laterality Modality Head and Neck Computed Tomogra phy 11/05/2024 11:3 3 PM EDT Impressions 11/05/2024 11:36 PM EDT No acute intracranial abnormality. Report reviewed and signed by : Dr. Tristen Monteiro on 11/05/2024 11:36 PM. Workstation Name - [id number] -------- FINAL REPORT -------- Dictated By: Tristen Monteiro Dictated Date: 11/05/2024 23:33 ET Assigned Physician: Tristen Monteiro Reviewed and Electronically Signed By: Tristen Monteiro Signed Date: 11/05/2024 23:36 ET Workstation ID: [id number] Transcribed By: Self Edit Transcribed Date: 11/05/2024 23:33 ET Narrative 11/05/2024 11:36 PM EDT PROCEDURE: CT HEAD WO CONTRAST HISTORY: 69 years Female Head trauma, minor (Age >= 65y) TECHNIQUE: CT obtained through the head without intravenous contrast administration. COMPARISON: None. FINDINGS: Brain morphology, ventricles and sulci are unremarkable for age. No mass, mass effect, midline shift, hemorrhage or acute infarct. White matter hypodensities are probably related to small vessel ischemic disease. No significant sinus or mastoid disease. Procedure Note Tristen Monteiro MD - 11/05/2024 PROCEDURE: CT HEAD WO CONTRAST HISTORY: 69 years Female Head trauma, minor (Age >= 65y) TECHNIQUE: CT obtained through the head without intravenous contrastadministration. COMPARISON: None. FINDINGS: Brain morphology, ventricles and sulci are unremarkable for age. No mass, mass effect, midline shift, hemorrhage or acute infarct. White matter hypodensities are probably related to small vessel ischemicdisease. No significant sinus or mastoid disease. IMPRESSION: No acute intracranial abnormality. Report reviewed and signed by : Dr. Tristen Monteiro on 11/05/2024 11:36PM. Workstation Name - [id number] -------- FINAL REPORT -------- Dictated By: Tristen Monteiro Dictated Date: 11/05/2024 23:33 ET Assigned Physician: Tristen Monteiro Reviewed and Electronically Signed By: Tristen Monteiro Signed Date: 11/05/2024 23:36 ET Workstation ID: [id number] Transcribed By: Self Edit Transcribed Date: 11/05/2024 23:33 ET Levy Bettencourt MD IMG CT PROCEDURES Final Resul t * ECG 12 lead (11/05/2024 9:38 PM EDT) Only the most recent of2 resultswithin the time period is included. Ventricular Rate ECG 107 BPM GEMUSE Atrial Rate 107 BPM GEMUSE P-R Interval 154 ms GEMUSE QRS Duration 80 ms GEMUSE Q-T Interval 260 ms GEMUSE QTc 347 ms GEMUSE P Wave [place] 55 degrees GEMUSE R [place] 34 degrees GEMUSE T [place] -95 degrees GEMUSE ECG Interpretation Sinus tachycardia ST & T wave abnormality, consider anterolateral ischemia Abnormal ECG When compared with ECG of 05-NOV-2024 18:23, (Unconfirmed) No significant change was found Confirmed by Suki Warner ([id number]) on 11/09/2024 12:09:29 PM GEMUSE 11/05/2024 9:38 PM EDT 11/09/2024 12:09 PM EDT us Levy Bettencourt MD ECG ORDERABLES Final Result GEMUSE * Lactate, with reflex (11/05/2024 9:28 PM EDT) Only the most recent of2 resultswithin the time period is included. LACTIC ACID 2.0 0.5 - 2.2 mmol/L LAB BLOOD GAS METHOD 11/05/2024 10:02 PM EDT [facility] Blood Venous blood specimen / Unknown Venipuncture / Unknown 11/05/2024 9:28 PM EDT 11/05/2024 9:44 PM EDT us Levy Bettencourt MD LAB BLOOD ORDERABLES Final Re sult [facility] [address] [place] [address], [place] [phone] * POCT Glucose, blood (11/05/2024 9:08 PM EDT) [facility] Glucose POCT 112 70 - 199 mg/dL 11/05/2024 9:08 PM EDT [facility] Comment: Fasting Reference Range: 70-99 mg/dL Non-Fasting Reference Range: 70-199 mg/dL Blood Capillary blood specimen / Unknown 11/05/2024 9:08 PM EDT 11/05/2024 9:09 PM EDT us Levy Bettencourt MD LAB POINT OF CARE TE ST DOCKED DEVICE UNSOLICITED RESULTS Final Result Performing Organization Address City/[facility]/ZIP Co de Phone Number [facility] [address] [place] [address], [place] [phone] * (ABNORMAL) Troponin I high sensitivity (NOW and then in 1 hour) (11/05/2024 8:15 PM EDT) Only the most recent of2 resultswithin the time period is included. [facility] High Sensitivity Troponin I 19(H) 0 - 14 ng/L LAB CHEMISTRY METHOD 11/05/2024 9:21 PM EDT [facility] Blood Venous blood specimen / Unknown Venipuncture / Unknown 11/05/2024 8:15 PM EDT 11/05/2024 8:35 PM EDT Narrative [facility] - 11/05/2024 9:21 PM EDT HSTnI results stratify to HIGH RISK category if any value >100 ng/L or delta at 1 hour is greater than or equal to 15 ng/L (male and female). Note: Delta values are not applicable if symptoms began more than 12 hours pre-arrival. Risk stratification should include the calculation of the HEART score. The testing method is an immunoenzymatic assay manufactured by [employer] and performed on the [employer] DxI 800. us Levy Bettencourt MD LAB BLOOD ORDERABLES Final Re sult Performing Organization Address City/[facility]/ZIP Co de Phone Number [facility] [address] [place] [address], [place] [phone] * Thyroid stimulating hormone with reflex free T4 (11/05/2024 7:37 PM EDT) TSH 1.38 0.45 - 5.33 mcIU/mL LAB CHEMISTRY METHOD 11/05/2024 8:43 PM EDT [facility] Blood Venous blood specimen / Unknown Venipuncture / Unknown 11/05/2024 7:37 PM EDT 11/05/2024 8:00 PM EDT Levy Bettencourt MD LAB BLOOD ORDERABLES Final Re sult Performing Organization Address City/[facility]/ZIP Co de Phone Number [facility] [address] [place] [address], [place] [phone] * Prothrombin time with INR (11/05/2024 7:37 PM EDT) Protime 12.0 10.5 - 13.3 sec LAB COAGULATION METHOD 11/05/2024 8:15 PM EDT [facility] INR 1.0 0.8 - 1.1 LAB COAGULATION METHOD 11/05/2024 8:15 PM EDT [facility] Blood Venous blood specimen / Unknown Venipuncture / Unknown 11/05/2024 7:37 PM EDT 11/05/2024 8:00 PM EDT Narrative [facility] - 11/05/2024 8:15 PM EDT Std. Therapy 2.0-3.0 INR High Dose Therapy 3.0-4.5 INR Ranges may vary depending on clinical indications and protocol. Levy Bettencourt MD LAB BLOOD ORDERABLES Final Re sult Performing Organization Address [facility]/ZIP Co de Phone Number [facility] [address] [place] [address], [place] [phone] * (ABNORMAL) Lipase (11/05/2024 7:37 PM EDT) Lipase 8(L) 11 - 82 unit/L LAB CHEMISTRY METHOD 11/05/2024 8:42 PM EDT [facility] Blood Venous blood specimen / Unknown Venipuncture / Unknown 11/05/2024 7:37 PM EDT 11/05/2024 8:00 PM EDT Levy Bettencourt MD LAB BLOOD ORDERABLES Final Re sult Performing Organization Address City/[facility]/ZIP Co de Phone Number [facility] [address] [place] [address], [place] [phone] * (ABNORMAL) Venous blood gas (11/05/2024 7:37 PM EDT) pH, [place] 7.30(L) 7.35 - 7.45 pH LAB BLOOD GAS METHOD 11/05/2024 8:18 PM EDT [facility] pCO2, [place] 54 mmHg LAB BLOOD GAS METHOD 11/05/2024 8:18 PM EDT [facility] Comment:No established refer ence range. pO2, [place] 71 mmHg LAB BLOOD GAS METHOD 11/05/2024 8:18 PM EDT [facility] Comment:No established refer ence range. HCO3, Venous 24.2 mmol/L LAB BLOOD GAS METHOD 11/05/2024 8:18 PM EDT [facility] Comment:No established refer ence range. O2 Sat, [place] 95.3 % LAB BLOOD GAS METHOD 11/05/2024 8:18 PM EDT [facility] Comment:No established refer ence range. Base Excess, [place] -0.7 mmol/L LAB BLOOD GAS METHOD 11/05/2024 8:18 PM EDT [facility] Comment:No established refer ence range. Blood Venous blood specimen / Unknown Venipuncture / Unknown 11/05/2024 7:37 PM EDT 11/05/2024 8:00 PM EDT Levy Bettencourt MD LAB BLOOD ORDERABLES Final Re sult Performing Organization Address City/[facility]/ZIP Co de Phone Number [facility] [address] [place] [address], * Creatine kinase (11/05/2024 7:37 PM EDT) [facility] Total CK 58 30 - 135 unit/L LAB CHEMISTRY METHOD 11/05/2024 8:42 PM EDT [facility] Blood Venous blood specimen / Unknown Venipuncture / Unknown 11/05/2024 7:37 PM EDT 11/05/2024 8:00 PM EDT us Levy Bettencourt MD LAB BLOOD ORDERABLES Final Re sult [facility] [address] [place] [address], [place] [phone] * Ethanol (11/05/2024 7:37 PM EDT) Ethanol Level <10 0 - 10 mg/dL LAB CHEMISTRY METHOD 11/05/2024 8:42 PM EDT [facility] Blood Venous blood specimen / Unknown Venipuncture / Unknown 11/05/2024 7:37 PM EDT 11/05/2024 8:00 PM EDT Narrative [facility] - 11/05/2024 8:42 PM EDT Medical Purpose Results of this test are to be used for medical purposes only us Levy Bettencourt MD LAB BLOOD ORDERABLES Final Re sult Performing Organization Address City/[facility]/ZIP Co de Phone Number [facility] [address] [place] [address], * (ABNORMAL) Acetaminophen level (11/05/2024 7:37 PM EDT) Acetaminophen Level <10.0(L) 10.0 - 30.0 mcg/mL LAB CHEMISTRY METHOD 11/05/2024 9:19 PM EDT [facility] Comment:Verified by repeat a nalysis Blood Venous blood specimen / Unknown Venipuncture / Unknown 11/05/2024 7:37 PM EDT 11/05/2024 8:00 PM EDT us Levy Bettencourt MD LAB BLOOD ORDERABLES Final Re sult Performing Organization Address City/[facility]/ZIP Co de Phone Number [facility] [address] [place] [address], [place] [phone] * (ABNORMAL) Salicylate level (11/05/2024 7:37 PM EDT) Salicylate Level <2.5(L) 10.0 - 30.0 mg/dL LAB CHEMISTRY METHOD 11/05/2024 9:19 PM EDT [facility] Comment:Verified by repeat a nalysis Blood Venous blood specimen / Unknown Venipuncture / Unknown 11/05/2024 7:37 PM EDT 11/05/2024 8:00 PM EDT us Levy Bettencourt MD LAB BLOOD ORDERABLES Final Re sult [facility] [address] [place] [address], [place] [phone] from Last 3 Months Insurance [employer] [place] [id number] Advance Directives * Full Code - Default (Latest Code Status on File) Date Activated Date Inactivated Comments 11/06/2024 12:58 AM 11/13/2024 8:47 PM This is orde r is used when code status has not been discussed with the patient, or code status is otherwise unknown/unconfirmed To update the patient's code status, place a code status order. Do not modify or discontinue any currently active code status orders. Care Teams Cemetery Manager Relationship Specialty Start Date End Date Physician, No Pcp PCP - General 11/05/24
--- NOTE | 2024-11-20 15:44 | PC.NURSE ---
Pt appears to be in no apparent distress at this time, calm and cooperative, offering no complaints to this RN
[2024-11-20 16:18] VITALS: BP 116/62; PULSE 77; RESP 18; TEMP 36.6; O2SAT 98
[2024-11-20] MEDS: Morphine Sulfate Immed Release 15 MG TABLET PO (16:24)
--- NOTE | 2024-11-20 16:25 | PC.NURSE ---
Addendum entered by Abby Gould 11/20/24 18:18: correction: left hip Original Note: pt reporting 9/10 right hip pain at this time, medicated appropriately see MAR
[2024-11-20 20:45] VITALS: BP 111/67; PULSE 82; RESP 14; TEMP 36.2; O2SAT 100
--- NOTE | 2024-11-20 21:20 | PC.NURSE ---
assessed for pain at hS and client denied pain at this time
[2024-11-21] MEDS: oxyCODONE HCl Immed Release 5 MG TABLET PO ×2 (01:03→17:30)
[2024-11-21 07:24] VITALS: BP 125/75; PULSE 83; RESP 16; TEMP 36.6; O2SAT 100
[2024-11-21] MEDS: Aspirin Enteric Coated 81 MG TABLET.DR PO ×2 (08:43→22:00)
[2024-11-21] MEDS: Venlafaxine HCl ER 150 MG CAP.ER.24H PO (08:44)
--- NOTE | 2024-11-21 12:31 | PHA.MEDREC ---
Addendum entered by Christelle Washington RPh 11/21/24 12:59: Reviewed by [facility]. While Melatonin 50 mg sublingual is available OTC, would recommended to order melatonin 9 mg tablets while inpatient. Original Note: Pharmacy Consult ? Medication Reconciliation Pharmacy reviewed med rec done by nursing. Spoke with pt and she confirm her medications. Pt confirmed she takes an OTC Meltonin 50mg sublingual she gets from [employer] 1-2 tabs as needed for sleep and Tylenol Arthritis as needed for pain; I added those to the med rec (Melat[place] in as NF, we do not have that dose in our system).
[2024-11-21 17:22] VITALS: BP 128/75; PULSE 65; RESP 18; TEMP 36.3; O2SAT 100
--- NOTE | 2024-11-21 19:29 | PC.NURSE ---
patient appears to remain at rest at preent respirtions are even and unlabored patient appears in no distress.
--- NOTE | 2024-11-21 23:51 | PC.NURSE ---
Took over care from RN Kendra, pt sleeping at this time, no sign of distress.
[2024-11-22] MEDS: oxyCODONE HCl Immed Release 5 MG TABLET PO ×2 (02:29→21:54)
--- NOTE | 2024-11-22 02:30 | PC.NURSE ---
Pt oob to bathroom with walker, medicated per jul.
[2024-11-22 02:31] VITALS: BP 158/79; PULSE 80; RESP 18; TEMP 36.9; O2SAT 100
--- NOTE | 2024-11-22 06:47 | PC.NURSE ---
Assumed care of patient at 0645, patient appears to be in no apparent distress at this time, sleeping, respirations even and unlabored. Continue plan of care for Lauren bedsearch
[2024-11-22 08:44] VITALS: BP 123/72; PULSE 72; RESP 16; TEMP 36.6; O2SAT 100
[2024-11-22 08:51] VITALS: BP 123/72
[2024-11-22] MEDS: Venlafaxine HCl ER 150 MG CAP.ER.24H PO (08:51)
[2024-11-22] MEDS: Aspirin Enteric Coated 81 MG TABLET.DR PO ×2 (08:51→21:55)
--- NOTE | 2024-11-22 15:56 | PC.NURSE ---
report given to MADHAVI Vences on S1
[2024-11-22 17:16] VITALS: BP 119/60; PULSE 74; RESP 16; TEMP 2.4; TEMP 36.3; O2SAT 99
[2024-11-22 17:26] VITALS: BMI 30.7
--- NOTE | 2024-11-22 17:38 | PC.ADMIT ---
Denise Renee was admitted from POD on 11/22/2024 at 1615. Patient signed CV. Patient had suicide attempt on 11/05/2024, were she took between 50-70 pills of prescribed medication, patient then fell and injured her hip. Patient was brought to [facility] where she received medical treatment, left hip repair, incision currently open to air with sutures and steri strips in place. Denise was discharged from [facility] without psychiatric treatment. Patient moved in with her daughter, who reported the patient having suicidal ideation, making statements such as, I am going to end my life, its my choice multiple times over the past 2 weeks. On 11/20/2024 patient presented to ED, needing placement for suicidal ideation. Upon admission to ED patient had SI but no plan. Patient is AxOx4. Denise is calm, pleasant, and cooperative with all admission process. Patient appears depressed, sad, anxious, but hopeful and made statements that she is ready to get better.. Denies current SI/HI/AH/VH. No appearance of internal preoccupation. Patients thought process is organized, clear, linear. Patient was on Oxempic and lost 100 lbs over the last year, but has been off Oxempic for >1month. Denise has been having decreased appetite and trouble sleeping. Patient does not drink, has never smoked, endorses using marijuana gummies medicinally for sleep and pain. Ana tox screen was positive for THC and oxycodone. The oxycodone is prescribed for post operative pain. Patient has a past medical history of HTN, bariatric surgery, hysterectomy, and cholecystectomy. Denise stated she had a brain surgery for a pituitary disorder 20 years ago and states that she may need an MRI, as some of the symptoms she was experiencing then are happening now. Patient states she is having intermittent dizziness, peripheral vision changes and breast leakage, which she experienced prior to the brain surgery, and was told by her neurosurgeon that the complication could occur again. Patient skin is intact other than surgical incision of left hip. She is on 5 minute checks and has walker d/t recent hip surgery.
[2024-11-22 21:52] VITALS: BP 119/72; PULSE 81; RESP 16; TEMP 36.7; O2SAT 100
[2024-11-23 07:28] LABS: Hemoglobin A1C 92.2055 umol/L; Total Hemoglobin (HGBA1C) 2449.2445 umol/L
[2024-11-23 07:30] LABS: Alanine Aminotransferase < 6 U/L (0-31); Albumin Level 3.2 g/dL (3.5-5.0); Alkaline Phosphatase 112 U/L (39-117); Anion Gap 9 (12-20); Aspartate Amino Transferase 18 U/L (5-31); Blood Urea Nitrogen 14 mg/dL (9-16); Calcium 8.7 mg/dL (8.4-10.2); Carbon Dioxide 30 mmol/L (22-29); Chloride 108 mmol/L (96-108); Cholesterol 148 mg/dL (<200); Creatinine Clr Calc Pharmacy 93.3; Estimated Glomerular Filt Rate > 60; HDL Cholesterol 45 mg/dL (>40); Potassium 4.9 mmol/L (3.3-5.1); Sodium 142 mmol/L (135-145); Total Protein 5.6 g/dL (6.5-8.0); Triglycerides 66 mg/dL (<150)
[2024-11-23 07:39] LABS: Thyroid Stimulating Hormone 0.76 uIU/mL (0.32-4.0)
[2024-11-23 07:50] LABS: Folate 5.1 ng/mL (> or = 4.0); Vitamin B12 414 pg/mL (200-900)
[2024-11-23 08:00] VITALS: BP 120/60; PULSE 82; RESP 16; TEMP 36.4; O2SAT 97
[2024-11-23 08:13] VITALS: BP 120/60; PULSE 82
[2024-11-23 08:14] VITALS: BP 120/60
[2024-11-23] MEDS: Aspirin Enteric Coated 81 MG TABLET.DR PO ×2 (08:14→19:58)
[2024-11-23] MEDS: Venlafaxine HCl ER 150 MG CAP.ER.24H PO (08:14)
[2024-11-23] MEDS: Venlafaxine HCl ER 37.5 MG CAP.ER.24H PO (08:14)
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
[2024-11-23 19:56] VITALS: BP 113/62; PULSE 64; RESP 16; TEMP 36.9; O2SAT 99
[2024-11-23] MEDS: oxyCODONE HCl Immed Release 5 MG TABLET PO (19:58)
[2024-11-24 08:00] VITALS: BP 133/69; PULSE 75; RESP 16; TEMP 36.5; O2SAT 98
[2024-11-24] MEDS: Aspirin Enteric Coated 81 MG TABLET.DR PO ×2 (08:07→20:25)
[2024-11-24] MEDS: Venlafaxine HCl ER 37.5 MG CAP.ER.24H PO (08:07)
[2024-11-24] MEDS: Venlafaxine HCl ER 150 MG CAP.ER.24H PO (08:07)
[2024-11-24 08:08] VITALS: BP 133/69; PULSE 75
--- NOTE | 2024-11-24 19:57 | P.PNPSI_ITS ---
Subjective Subjective Date of Service: 11/24/24 Reason For Visit: Sent from [facility] for eval Interim History: Met with patient; discussed with team Patient reports that she is feeling a little better. She says she can tell this because I am not crying all the time.... Not over thinking so much... She feels that increased Effexor is helping and would like to continue with current treatment plan. Mental Status Exam Mental Status Exam Narrative: Patient is alert and oriented x4 ; behavior is isolating to self but cooperative, friendly on approach; patient is not in distress; dressed in hospital attire with adequate hygiene; . mood is described as a little about her and affect congruent, more calm; eye contact appropriate; Speech is normal rate, volume and prosody and not pressured; psychomotor retardation present; thought process is organized and goal directed, help seeking; Thought content is on treatment, pertinent to relevant topics and without any delusional content, paranoid ideation or grandiosity; denies any SI/SIB/HI. Denies AH and there is no evidence of perceptual disturbance. Patient's insight and judgment impaired but seems to be improving. Diagnostics Vital Signs (24Hr): Vital Signs - 24 hr 11/24/24 08:00 11/24/24 08:08 11/24/24 08:08 Temperature 97.7 F Pulse Rate 75 75 Respiratory Rate 16 Blood Pressure 133/69 133/69 133/69 Pulse Oximetry 98 Oxygen Delivery Method Room Air BMI result Body Mass Index 30.7 Labs 11/20/24 12:55 11/23/24 06:50 Labs: Laboratory Results - last 48 hr 11/23/24 06:50 Sodium 142 Potassium 4.9 D Chloride 108 Carbon Dioxide 30 H Anion Gap 9 L BUN 14 Creatinine 0.59 Estim Creat Clear Calc 93.3 Estimated GFR > 60 Random Glucose 90 Estimat Average Glucose 114 Hemoglobin A1c % 5.6 Calcium 8.7 Total Bilirubin 0.8 AST 18 ALT < 6 Alkaline Phosphatase 112 Total Protein 5.6 L Albumin 3.2 L Triglycerides 66 Cholesterol 148 LDL Cholesterol, Calc 90 HDL Cholesterol 45 Vitamin B12 414 Folate 5.1 TSH 0.76 Imaging Radiology Impressions: ITS Impressions Hip/Pelvis X-Ray 11/20/24 12:17 IMPRESSION: Total left hip arthroplasty prosthesis without acute fracture or dislocation. Mild osteoarthrosis, right hip. Electronically signed by: Morro Funk MD 11/20/2024 01:24 PM EDT RP Head CT 11/20/24 13:05 IMPRESSION: No acute fracture, bony calvarium. No acute intracranial hemorrhage. Small vessel occlusive disease. Atherosclerosis disease. Electronically signed by: Morro Funk MD 11/20/2024 01:30 PM EDT RP Medications Medications Current Medications Acetaminophen (Acetaminophen 325 Mg Tablet) 650 mg PO Q6H PRN PRN Reason: Headache/Pain, Scale 1-10 Last Admin: 11/24/24 08:08 Dose: 650 mg Al Hydroxide/Mg Hydroxide (Magnesium Hydrox/Alum Hydrox 30 Ml Oral.Susp) 30 ml PO Q6H PRN PRN Reason: Heartburn/Nausea Aspirin (Aspirin Enteric Coated 81 Mg Tablet.Dr) 81 mg PO BID [facility] Last Admin: 11/24/24 08:07 Dose: 81 mg Atenolol (Atenolol 100 Mg Tablet) 100 mg PO DAILY [facility]; Protocol Last Admin: 11/24/24 08:08 Dose: 100 mg Ibuprofen (Ibuprofen 600 Mg Tablet) 600 mg PO RQ6H PRN PRN Reason: Pain, Severe (Pain Scale 7-10) Losartan Potassium (Losartan Potassium 50 Mg Tablet) 50 mg PO DAILY [facility]; Protocol Last Admin: 11/24/24 08:08 Dose: 50 mg Magnesium Hydroxide (Milk Of Magnesia 30 Ml Oral.Susp) 30 ml PO DAILY PRN PRN Reason: Constipation Melatonin (Melatonin 3 Mg Tablet) 6 mg PO BEDTIME [facility] Last Admin: 11/23/24 19:58 Dose: 6 mg Morphine Sulfate (Morphine Sulfate Immed Release 15 Mg Tablet) 15 mg PO Q4H PRN PRN Reason: Pain, Severe (Pain Scale 7-10) Last Admin: 11/20/24 16:24 Dose: 15 mg Oxycodone HCl (Oxycodone Hcl Immed Release 5 Mg Tablet) 5 mg PO Q8H PRN PRN Reason: Moderate Pain (Scale Score 5-6) Last Admin: 11/23/24 19:58 Dose: 5 mg Trazodone HCl (Trazodone Hcl 50 Mg Tablet) 50 mg PO BEDTIME PRN PRN Reason: Insomnia Last Admin: 11/24/24 02:32 Dose: 50 mg Venlafaxine HCl (Venlafaxine Hcl Er 150 Mg Cap.Er.24h) 150 mg PO DAILY [facility] Last Admin: 11/24/24 08:07 Dose: 150 mg Venlafaxine HCl (Venlafaxine Hcl Er 37.5 Mg Cap.Er.24h) 37.5 mg PO DAILY [facility] Last Admin: 11/24/24 08:07 Dose: 37.5 mg Allergies Allergies Allergy/AdvReac Type Severity Reaction Status Date / Time No Known Allergies Allergy Verified 11/20/24 11:06 Assessment & Plan Assessment & Plan (1) Suicide attempt: Status: Acute Code(s): T14.91XA - Suicide attempt, initial encounter (2) Major depression, recurrent: Status: Acute Code(s): F33.9 - Major depressive disorder, recurrent, unspecified (3) S/P prosthetic total arthroplasty of the hip: Status: Acute Code(s): Z96.649 - Presence of unspecified artificial hip joint Plan HPI: Patient self presented [place] [facility] [place] requesting placement for suicidal ideation. Patient a suicide attempt on 11/05/2024 and intentionally took between 50 -70 pills of prescribed medication causing her to fall and sustain a hip injury. Patients daughter called 911 and she was transported to [facility] where she received medical treatment however was discharged without receiving any psychiatric treatment. She reported withdrawal symptoms from her antidepressants stating she is getting ?brain zaps. She reported labile mood with an increase in anger and poor impulse control . She reported poor sleep and appetite. History of suicidal thoughts numerous times, history 1 suicide attempt prior to the the one in November 05. No current psychiatrist or therapist. She has not compliant with taking her Effexor daily-which she reports some withdrawal symptoms sometimes when she stopped taking it. Formulation/clinical reasoning: Overdose on prescription medication in November 05,one prior attempt on overdose medication when she was in college, increases depression, sleep and appetite was not great lately, increased stress from family with housing issue- Reports PTSD living with the [id number] it as a toxic relationship but still have to stay in the same house. Reports history of avel episode. Given above information, patient would be benefit for inpatient restrictive environment for own safety. Diagnostic, medication management, and refer to outpatient psychiatric services. Hospital course: 11/22- 11/23: Alert and oriented x4. No SI/SIB/HI/AVH: Mood is embarrassed . Continue with home medication. Educate patient on consistently taking her medication to avoid relapsed on depression and anxiety. Also avoid withdrawal symptoms for stopped abruptly her Effexor. It takes her for awhile to make decision to continue with this medication with those increased, but she agrees with the plan to increase from 150-225 mg daily in the morning. Started melatonin 6 mg at bedtime for insomnia. Could need more information to to identify if she has bipolar I versus bipolar II, versus MDD. We will do Collateral with her daughter Patient ambulate with a walker for own safety. 11/24 Patient reports that she is feeling a little better. She says she can tell this because I am not crying all the time.... Not over thinking so much... She feels that increased Effexor is helping and would like to continue with current treatment plan. Plan Patient on 5 minute checks for safety. Admitted to . S1 CV. Continue Effexor increased to 225 mg on admission; seems to be helping Work with treatment team to do collateral and aftercare for aftercare. Patient has no outpatient psychiatrist/therapist. Ordered some labs were per protocol. Patient educated on: diagnosis and medication risk/benefits Informed Consent: understands Reason for continued inpatient stay Substantial Risk for: rapid decompensation Time Spent With Patient Time: Total time managing care of this patient today ____ minutes.
[2024-11-24 20:24] VITALS: BP 123/70; PULSE 62; RESP 16; TEMP 36.5; O2SAT 98
[2024-11-24] MEDS: oxyCODONE HCl Immed Release 5 MG TABLET PO (20:25)
[2024-11-25 08:00] VITALS: BP 121/68; PULSE 73; RESP 16; TEMP 36.5; O2SAT 99
[2024-11-25 08:27] VITALS: BP 121/68; PULSE 73
[2024-11-25] MEDS: Venlafaxine HCl ER 37.5 MG CAP.ER.24H PO (08:27)
[2024-11-25] MEDS: Venlafaxine HCl ER 150 MG CAP.ER.24H PO (08:27)
[2024-11-25] MEDS: Aspirin Enteric Coated 81 MG TABLET.DR PO ×2 (08:27→20:17)
--- NOTE | 2024-11-25 10:55 | P.CONHOSP_ITS ---
History of Present Illness Data of Consult Service Date: 11/25/24 Primary Care Provider: [facility] HPI Reason for consult: Medical management. 69-year-old female with a past medical history recent left hip ORIF due to fall, HTN, Depression, suicidal ideation. She has a past medical history of a pituitary tumor 20 years ago, followed in [place] and has follow up appointments scheduled. Patient is admitted to [facility] after she presented to the ED with a suicide attempt, she reportedly ingested multiple medications including Effexor, atenolol, and a whole bunch of melatonin, she subsequently fell and broke her hip. She is now admitted here for further care. Patient is awake and alert, appears sad, she is a good historian. She is ambulating with a walker, she reports that she fell and broke her hip on 11/05/2024, had a subsequent ORIF on the at [facility]. She is followed by [facility] outpatient. Reports she is having similar symptoms including intermittent dizziness, peripheral vision changes and breast leakage when she was diagnosed with a pituitary tumor and is anxious about having a follow up MRI, feels that it may be contributing to some of her issues. She denies any symptoms at present. Reports her hip pain is well controlled, she is only taking oxycodone at night, pain management achieved with Tylenol during the day. She is awake and ambulating. Well-healed surgical incision. Review of Systems 2 Review of Systems: Denies any shortness of breath, chest pain, dizziness, lightheadedness, abdominal pain or discomfort, nausea vomiting or diarrhea PMFSH Medical History (Updated 11/25/24 @ 14:21 by Shanell Connelly DNP) Depression Hypertension Surgical History (Updated 11/24/24 @ 01:37 by Syeda Lofton NP) History of hysterectomy H/O bariatric surgery Hx of cholecystectomy Social History Household Members: Children Household Members Other:: Natty Renee Housing: House Do you presently have visiting nurse or other home services: No Alcohol intake: former Patient Tobacco Use Status: Never used Tobacco Smoked in Last 30 Days: No Use of substances other than those prescribed or required for medical reasons: No Currently Displaying Signs/Symptoms of Drug Intoxication Withdrawal: No Have you been hit, kicked, punched, or otherwise hurt by someone within the past year? If so, by whom?: No Do you feel safe in your current relationship?: No Current Relationship Is there a partner from a previous relationship who is making you feel unsafe now?: No Are you made to feel afraid or neglected: No Advance Directives: No Advance Directives Information Provided: Yes Do you have thoughts of harming others: None Do you have a plan to hurt others: No Plan Recently lost weight without trying: No Eating poorly because of decreased appetite: No Nutrition Risks: No Nutritional Risk Patient : No Current occupational status: retired [employer] Allergies Allergy/AdvReac Type Severity Reaction Status Date / Time No Known Allergies Allergy Verified 11/20/24 11:06 Active Medications: Current Medications Acetaminophen (Acetaminophen 325 Mg Tablet) 650 mg PO Q6H PRN PRN Reason: Headache/Pain, Scale 1-10 Last Admin: 11/25/24 09:58 Dose: 650 mg Al Hydroxide/Mg Hydroxide (Magnesium Hydrox/Alum Hydrox 30 Ml Oral.Susp) 30 ml PO Q6H PRN PRN Reason: Heartburn/Nausea Aspirin (Aspirin Enteric Coated 81 Mg Tablet.Dr) 81 mg PO BID [facility] Last Admin: 11/25/24 08:27 Dose: 81 mg Atenolol (Atenolol 100 Mg Tablet) 100 mg PO DAILY [facility]; Protocol Last Admin: 11/25/24 08:27 Dose: 100 mg Ibuprofen (Ibuprofen 600 Mg Tablet) 600 mg PO RQ6H PRN PRN Reason: Pain, Severe (Pain Scale 7-10) Losartan Potassium (Losartan Potassium 50 Mg Tablet) 50 mg PO DAILY [facility]; Protocol Last Admin: 11/25/24 08:27 Dose: 50 mg Magnesium Hydroxide (Milk Of Magnesia 30 Ml Oral.Susp) 30 ml PO DAILY PRN PRN Reason: Constipation Melatonin (Melatonin 3 Mg Tablet) 6 mg PO BEDTIME [facility] Last Admin: 11/24/24 20:25 Dose: 6 mg Morphine Sulfate (Morphine Sulfate Immed Release 15 Mg Tablet) 15 mg PO Q4H PRN PRN Reason: Pain, Severe (Pain Scale 7-10) Last Admin: 11/20/24 16:24 Dose: 15 mg Oxycodone HCl (Oxycodone Hcl Immed Release 5 Mg Tablet) 5 mg PO Q8H PRN PRN Reason: Moderate Pain (Scale Score 5-6) Last Admin: 11/24/24 20:25 Dose: 5 mg Trazodone HCl (Trazodone Hcl 50 Mg Tablet) 50 mg PO BEDTIME PRN PRN Reason: Insomnia Last Admin: 11/24/24 02:32 Dose: 50 mg Venlafaxine HCl (Venlafaxine Hcl Er 150 Mg Cap.Er.24h) 150 mg PO DAILY [facility] Last Admin: 11/25/24 08:27 Dose: 150 mg Venlafaxine HCl (Venlafaxine Hcl Er 37.5 Mg Cap.Er.24h) 37.5 mg PO DAILY [facility] Last Admin: 11/25/24 08:27 Dose: 37.5 mg Home Medications ?Medication ?Instructions ?Recorded ?Confirmed ?Last Taken ?Type atenolol 100 mg tablet 100 mg PO DAILY 08/07/2302/06 Unknown History venlafaxine 150 mg 150 mg PO DAILY 08/07/2302/06 Unknown History capsule,extended release 24 hr aspirin 81 mg tablet 81 mg PO BID 11/20/24 Unknown History losartan 50 mg tablet 50 mg PO DAILY 11/20/2402/06 Unknown History oxycodone 5 mg tablet 5 mg PO Q8H PRN Moderate Nolvia n 11/20/24 11/20/24 Unknown History (Scale Score 5-6) acetaminophen 650 mg 1,300 mg PO Q8H PRN knee nolvia n 11/21/24 11/21/24 Unknown History tablet,extended release melatonin 2 tab sublingual BEDTIME PRN Sleep 11/21/24 11/21/24 Unknown History Physical Exam 2 Vital Signs and Narrative: Vital Signs: Last Vital Signs Temp 97.7 F 11/25/24 08:00 Pulse 73 11/25/24 08:27 Resp 16 11/25/24 08:00 BP 121/68 11/25/24 08:27 Pulse Ox 99 11/25/24 08:00 O2 Del Method Room Air 11/25/24 08:00 BMI result Body Mass Index 30.7 CONST: Alert and oriented, in NAD. Well nourished HEENT: Normocephalic, atraumatic, MMM RESP: Lungs clear, RRR even and regular HEART:,RRR, S1, S2. No murmur, no edema GI:Abdomen Soft NT, ND. + BS times four :Deferred SKIN: Warm dry and intact, no visible lesions or rashes. Surgical incision with intact steristrip NEURO:CN II-XII Intact bilaterally, Sensation intact. Speech clear PSYCH: Normal affect Results Labs 11/20/24 12:55 11/23/24 06:50 Assessment and Plan (1) Postoperative anemia: Status: Acute Plan Depression with suicidal ideation Treatment plan per Psychiatry History of pituitary tumor Follow up with Neurology in [place] outpatient Status post left hip ORIF Continue aspirin b.i.d. for 42 days postop. Ambulate with walker Patient is weight bear as tolerated left hip H&H 10.3/32.9 Possible postoperative anemia, we will start iron Colace and senna due to risk for constipation with narcotics use-hold for loose stool Hypertension Continue with atenolol and losartan Blood pressure stable Thank you for allowing me to participate in the care of this patient. We will follow as needed. Please reconsult of any acute concerns or issues arise
[2024-11-25 20:00] VITALS: BP 126/67; PULSE 66; RESP 16; TEMP 36.2; O2SAT 97
--- NOTE | 2024-11-25 21:42 | P.PNPSI_ITS ---
Subjective Subjective Date of Service: 11/25/24 Reason For Visit: Sent from [facility] for eval Interim History: discussing recent depression, desire to increase effexor to 300 mg. agrees to increase to 225 as of tomorrow. pt expresses concern about h/o brain surgery for pituitary tumor, some recent Sx such as balance problems and LYNN which she had prior to surgical correction, concerned she is experiencing a recurrence of the tumor. discuss her idea she may have bipolar II disorder. pt reports periods of elevated or irritable mood with decreased need for sleep, with increased activity lasting several days to weeks at a time. per staff, eating well, sleeping 8hrs, denies all psych symptoms, here for SI. recent hip fracture, awaiting wound consult. on pain meds. Mental Status Exam Mental Status Exam Narrative: Patient is alert and oriented x4 ; behavior is isolating to self but cooperative, friendly on approach; patient is not in distress; dressed in hospital attire with adequate hygiene; . mood is described as depressed and affect congruent, calm; eye contact appropriate; Speech is normal rate, volume and prosody and not pressured; psychomotor retardation present; thought process is organized and goal directed, help seeking; Thought content is on treatment, pertinent to relevant topics and without any delusional content, paranoid ideation or grandiosity; denies any SI/SIB/HI. Denies AH and there is no evidence of perceptual disturbance. Patient's insight and judgment impaired but seems to be improving. Diagnostics Vital Signs (24Hr): Vital Signs - 24 hr 11/25/24 08:00 11/25/24 08:27 11/25/24 08:27 Temperature 97.7 F Pulse Rate 73 73 Respiratory Rate 16 Blood Pressure 121/68 121/68 121/68 Pulse Oximetry 99 Oxygen Delivery Method Room Air 11/25/24 20:00 Temperature 97.2 F Pulse Rate 66 Respiratory Rate 16 Blood Pressure 126/67 Pulse Oximetry 97 Oxygen Delivery Method Room Air BMI result Body Mass Index 30.7 Labs 11/20/24 12:55 11/23/24 06:50 Imaging Radiology Impressions: ITS Impressions Hip/Pelvis X-Ray 11/20/24 12:17 IMPRESSION: Total left hip arthroplasty prosthesis without acute fracture or dislocation. Mild osteoarthrosis, right hip. Electronically signed by: Morro Funk MD 11/20/2024 01:24 PM EDT RP Head CT 11/20/24 13:05 IMPRESSION: No acute fracture, bony calvarium. No acute intracranial hemorrhage. Small vessel occlusive disease. Atherosclerosis disease. Electronically signed by: Morro Funk MD 11/20/2024 01:30 PM EDT RP Medications Medications Current Medications Acetaminophen (Acetaminophen 325 Mg Tablet) 650 mg PO Q6H PRN PRN Reason: Headache/Pain, Scale 1-10 Last Admin: 11/25/24 09:58 Dose: 650 mg Al Hydroxide/Mg Hydroxide (Magnesium Hydrox/Alum Hydrox 30 Ml Oral.Susp) 30 ml PO Q6H PRN PRN Reason: Heartburn/Nausea Aspirin (Aspirin Enteric Coated 81 Mg Tablet.) 81 mg PO BID [facility] Last Admin: 11/25/24 20:17 Dose: 81 mg Atenolol (Atenolol 100 Mg Tablet) 100 mg PO DAILY [facility]; Protocol Last Admin: 11/25/24 08:27 Dose: 100 mg Docusate Sodium (Docusate Sodium 100 Mg Capsule) 100 mg PO BID [facility] Last Admin: 11/25/24 20:17 Dose: 100 mg Ferrous Sulfate (Ferrous Sulfate 324 Mg Tablet.) 324 mg PO DAILY [facility] Ibuprofen (Ibuprofen 600 Mg Tablet) 600 mg PO RQ6H PRN PRN Reason: Pain, Severe (Pain Scale 7-10) Losartan Potassium (Losartan Potassium 50 Mg Tablet) 50 mg PO DAILY [facility]; Protocol Last Admin: 11/25/24 08:27 Dose: 50 mg Magnesium Hydroxide (Milk Of Magnesia 30 Ml Oral.Susp) 30 ml PO DAILY PRN PRN Reason: Constipation Melatonin (Melatonin 3 Mg Tablet) 6 mg PO BEDTIME [facility] Last Admin: 11/25/24 20:16 Dose: 6 mg Morphine Sulfate (Morphine Sulfate Immed Release 15 Mg Tablet) 15 mg PO Q4H PRN PRN Reason: Pain, Severe (Pain Scale 7-10) Last Admin: 11/20/24 16:24 Dose: 15 mg Oxycodone HCl (Oxycodone Hcl Immed Release 5 Mg Tablet) 5 mg PO Q8H PRN PRN Reason: Moderate Pain (Scale Score 5-6) Last Admin: 11/24/24 20:25 Dose: 5 mg Senna (Sennosides 8.6 Mg Tablet) 17.2 mg PO BEDTIME [facility] Last Admin: 11/25/24 20:17 Dose: 17.2 mg Trazodone HCl (Trazodone Hcl 50 Mg Tablet) 50 mg PO BEDTIME PRN PRN Reason: Insomnia Last Admin: 11/24/24 02:32 Dose: 50 mg Venlafaxine HCl (Venlafaxine Hcl Er 75 Mg Cap.Er.24h) 225 mg PO DAILY [facility] Allergies Allergies Allergy/AdvReac Type Severity Reaction Status Date / Time No Known Allergies Allergy Verified 11/20/24 11:06 Assessment & Plan Assessment & Plan (1) Postoperative anemia: Status: Acute Code(s): D64.9 - Anemia, unspecified Assessment and Plan: Depression with suicidal ideation Treatment plan per Psychiatry History of pituitary tumor Follow up with Neurology in [place] outpatient Status post left hip ORIF Continue aspirin b.i.d. for 42 days postop. Ambulate with walker Patient is weight bear as tolerated left hip H&H 10.3/32.9 Possible postoperative anemia, we will start iron Colace and senna due to risk for constipation with narcotics use-hold for loose stool Hypertension Continue with atenolol and losartan Blood pressure stable (2) Major depression, recurrent: Status: Acute Code(s): F33.9 - Major depressive disorder, recurrent, unspecified Plan Formulation/clinical reasoning: Overdose on prescription medication in November 05,one prior attempt on overdose medication when she was in college, increases depression, sleep and appetite was not great lately, increased stress from family with housing issue- Reports PTSD living with the [id number] it as a toxic relationship but still have to stay in the same house. Reports history of avel episode. Given above information, patient would be benefit for inpatient restrictive environment for own safety. Diagnostic, medication management, and refer to outpatient psychiatric services. Hospital course: 11/22- 11/23: Alert and oriented x4. No SI/SIB/HI/AVH: Mood is embarrassed . Continue with home medication. Educate patient on consistently taking her medication to avoid relapsed on depression and anxiety. Also avoid withdrawal symptoms for stopped abruptly her Effexor. It takes her for awhile to make decision to continue with this medication with those increased, but she agrees with the plan to increase from 150-225 mg daily in the morning. Started melatonin 6 mg at bedtime for insomnia. Could need more information to to identify if she has bipolar I versus bipolar II, versus MDD. We will do Collateral with her daughter Patient ambulate with a walker for own safety. 11/24 Patient reports that she is feeling a little better. She says she can tell this because I am not crying all the time.... Not over thinking so much... She feels that increased Effexor is helping and would like to continue with current treatment plan. 11/25: remains depressed, concerned about pituitary tumor Hx. probably bipolar II Dx, T/C mood stabilizer. increase effexor to 225 tomorrow. Plan Patient on 5 minute checks for safety. Admitted to . S1 CV. Continue Effexor increased to 187.5 mg on admission; seems to be helping Work with treatment team to do collateral and aftercare for aftercare. Patient has no outpatient psychiatrist/therapist. Ordered some labs were per protocol. Reason for continued inpatient stay Substantial Risk for: harm to self, inability to function and rapid decompensation Time Spent With Patient Time: Total time managing care of this patient today __35__ minutes.
[2024-11-26 08:32] VITALS: BP 135/75; PULSE 73; RESP 18; TEMP 36.4; O2SAT 98
[2024-11-26] MEDS: Venlafaxine HCl ER 75 MG CAP.ER.24H 225 MG PO (08:34)
[2024-11-26] MEDS: Ferrous Sulfate 324 MG TABLET.DR PO (08:35)
[2024-11-26] MEDS: Aspirin Enteric Coated 81 MG TABLET.DR PO ×2 (08:36→19:51)
--- NOTE | 2024-11-26 12:51 | HO.PSYCHPN ---
Subjective Subjective Date of Service: 11/26/24 Reason For Visit: Sent from [facility] for eval Interim History: poor sleep overnight which she believes is related to no BM for days. did have BM today. planning to continue bowel regimen. discuss at length mood stabilizers. pt agrees to trial of lamictal for avel prophylaxis and anti-depressant efficacy in bipolar depression. Mental Status Exam Mental Status Exam Narrative: Patient is alert and oriented x4 ; behavior is isolating to self but cooperative, friendly on approach; patient is not in distress; dressed in own attire with adequate hygiene; . mood is described as improved and affect congruent, calm; eye contact appropriate; Speech is normal rate, volume and prosody and not pressured; psychomotor retardation not obviously present; thought process is organized and goal directed, help seeking; Thought content is on treatment, pertinent to relevant topics and without any delusional content, paranoid ideation or grandiosity; denies any SI/SIB/HI. Denies AH and there is no evidence of perceptual disturbance. Patient's insight and judgment improving. Diagnostics Vital Signs (24Hr): Vital Signs - 24 hr 11/25/24 20:00 11/26/24 08:32 Temperature 97.2 F 97.5 F Pulse Rate 66 73 Respiratory Rate 16 18 Blood Pressure 126/67 135/75 Pulse Oximetry 97 98 Oxygen Delivery Method Room Air Room Air BMI result Body Mass Index 30.7 Labs 11/20/24 12:55 11/23/24 06:50 Imaging Radiology Impressions: ITS Impressions Hip/Pelvis X-Ray 11/20/24 12:17 IMPRESSION: Total left hip arthroplasty prosthesis without acute fracture or dislocation. Mild osteoarthrosis, right hip. Electronically signed by: Morro Funk MD 11/20/2024 01:24 PM EDT RP Head CT 11/20/24 13:05 IMPRESSION: No acute fracture, bony calvarium. No acute intracranial hemorrhage. Small vessel occlusive disease. Atherosclerosis disease. Electronically signed by: Morro Funk MD 11/20/2024 01:30 PM EDT RP Medications Medications Current Medications Acetaminophen (Acetaminophen 325 Mg Tablet) 650 mg PO Q6H PRN PRN Reason: Headache/Pain, Scale 1-10 Last Admin: 11/25/24 09:58 Dose: 650 mg Al Hydroxide/Mg Hydroxide (Magnesium Hydrox/Alum Hydrox 30 Ml Oral.Susp) 30 ml PO Q6H PRN PRN Reason: Heartburn/Nausea Aspirin (Aspirin Enteric Coated 81 Mg Tablet.) 81 mg PO BID [facility] Last Admin: 11/26/24 08:36 Dose: 81 mg Atenolol (Atenolol 100 Mg Tablet) 100 mg PO DAILY [facility]; Protocol Last Admin: 11/26/24 08:35 Dose: 100 mg Docusate Sodium (Docusate Sodium 100 Mg Capsule) 100 mg PO BID [facility] Last Admin: 11/26/24 08:35 Dose: 100 mg Ferrous Sulfate (Ferrous Sulfate 324 Mg Tablet.) 324 mg PO DAILY [facility] Last Admin: 11/26/24 08:35 Dose: 324 mg Ibuprofen (Ibuprofen 600 Mg Tablet) 600 mg PO RQ6H PRN PRN Reason: Pain, Severe (Pain Scale 7-10) Losartan Potassium (Losartan Potassium 50 Mg Tablet) 50 mg PO DAILY [facility]; Protocol Last Admin: 11/26/24 08:35 Dose: 50 mg Magnesium Hydroxide (Milk Of Magnesia 30 Ml Oral.Susp) 30 ml PO DAILY PRN PRN Reason: Constipation Melatonin (Melatonin 3 Mg Tablet) 6 mg PO BEDTIME [facility] Last Admin: 11/25/24 20:16 Dose: 6 mg Morphine Sulfate (Morphine Sulfate Immed Release 15 Mg Tablet) 15 mg PO Q4H PRN PRN Reason: Pain, Severe (Pain Scale 7-10) Last Admin: 11/20/24 16:24 Dose: 15 mg Oxycodone HCl (Oxycodone Hcl Immed Release 5 Mg Tablet) 5 mg PO Q8H PRN PRN Reason: Moderate Pain (Scale Score 5-6) Last Admin: 11/24/24 20:25 Dose: 5 mg Senna (Sennosides 8.6 Mg Tablet) 17.2 mg PO BEDTIME [facility] Last Admin: 11/25/24 20:17 Dose: 17.2 mg Trazodone HCl (Trazodone Hcl 50 Mg Tablet) 50 mg PO BEDTIME PRN PRN Reason: Insomnia Last Admin: 11/24/24 02:32 Dose: 50 mg Venlafaxine HCl (Venlafaxine Hcl Er 75 Mg Cap.Er.24h) 225 mg PO DAILY [facility] Last Admin: 11/26/24 08:34 Dose: 225 mg Allergies Allergies Allergy/AdvReac Type Severity Reaction Status Date / Time No Known Allergies Allergy Verified 11/20/24 11:06 Assessment & Plan Assessment & Plan (1) Postoperative anemia: Status: Acute Code(s): D64.9 - Anemia, unspecified Assessment and Plan: Depression with suicidal ideation Treatment plan per Psychiatry History of pituitary tumor Follow up with Neurology in [place] outpatient Status post left hip ORIF Continue aspirin b.i.d. for 42 days postop. Ambulate with walker Patient is weight bear as tolerated left hip H&H 10.3/32.9 Possible postoperative anemia, we will start iron Colace and senna due to risk for constipation with narcotics use-hold for loose stool Hypertension Continue with atenolol and losartan Blood pressure stable (2) Major depression, recurrent: Status: Acute Code(s): F33.9 - Major depressive disorder, recurrent, unspecified Plan Formulation/clinical reasoning: Overdose on prescription medication in November 05,one prior attempt on overdose medication when she was in college, increases depression, sleep and appetite was not great lately, increased stress from family with housing issue- Reports PTSD living with the [id number] it as a toxic relationship but still have to stay in the same house. Reports history of avel episode. Given above information, patient would be benefit for inpatient restrictive environment for own safety. Diagnostic, medication management, and refer to outpatient psychiatric services. Hospital course: 11/22- 11/23: Alert and oriented x4. No SI/SIB/HI/AVH: Mood is embarrassed . Continue with home medication. Educate patient on consistently taking her medication to avoid relapsed on depression and anxiety. Also avoid withdrawal symptoms for stopped abruptly her Effexor. It takes her for awhile to make decision to continue with this medication with those increased, but she agrees with the plan to increase from 150-225 mg daily in the morning. Started melatonin 6 mg at bedtime for insomnia. Could need more information to to identify if she has bipolar I versus bipolar II, versus MDD. We will do Collateral with her daughter Patient ambulate with a walker for own safety. 11/24 Patient reports that she is feeling a little better. She says she can tell this because I am not crying all the time.... Not over thinking so much... She feels that increased Effexor is helping and would like to continue with current treatment plan. 11/25: remains depressed, concerned about pituitary tumor Hx. probably bipolar II Dx, T/C mood stabilizer. increase effexor to 225 tomorrow. 11/26: probable bipolar II Dx discussed, pt agreeable to start lamictal 25 mg QHS for hypomania prophylaxis and anti-depressant efficacy in bipolar disorder. 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 feeling better with increasing doses of effexor. Reason for continued inpatient stay Substantial Risk for: harm to self, inability to function and rapid decompensation Time Spent With Patient Time: Total time managing care of this patient today __35__ minutes.
[2024-11-26] MEDS: oxyCODONE HCl Immed Release 5 MG TABLET PO (19:56)
[2024-11-26 20:00] VITALS: BP 125/61; PULSE 65; RESP 18; TEMP 36.6; O2SAT 99
[2024-11-27 08:00] VITALS: BP 133/73; PULSE 72; RESP 18; TEMP 36.7; O2SAT 99
[2024-11-27] MEDS: Ferrous Sulfate 324 MG TABLET.DR PO (08:18)
[2024-11-27] MEDS: Venlafaxine HCl ER 75 MG CAP.ER.24H 225 MG PO (08:18)
[2024-11-27] MEDS: Aspirin Enteric Coated 81 MG TABLET.DR PO ×2 (08:21→20:12)
[2024-11-27] MEDS: oxyCODONE HCl Immed Release 5 MG TABLET PO (11:42)
--- NOTE | 2024-11-27 14:05 | P.PNPSI_ITS ---
Subjective Subjective Date of Service: 11/27/24 Reason For Visit: Sent from [facility] for eval Interim History: calm, cooperative, pleasant. logical, practical. pt reports thoughts racing, though. lots of plans in her head. agreeable to trial of risperidone 0.5 mg PRN racing thoughts. prolactin level reviewed with pt - WNL. talking about discharge, wants referral for therapy and psych MD. Mental Status Exam Mental Status Exam Narrative: Patient is alert and oriented x4 ; behavior is isolating to self but cooperative, friendly on approach; patient is not in distress; dressed in own attire with adequate hygiene; . mood is described as improved and affect congruent, calm; eye contact appropriate; Speech is normal rate, volume and prosody and not pressured; psychomotor retardation not obviously present; thought process is organized and goal directed, help seeking; Thought content is on treatment, pertinent to relevant topics and without any delusional content, paranoid ideation or grandiosity; denies any SI/SIB/HI. Denies AH and there is no evidence of perceptual disturbance. Patient's insight and judgment improving. Diagnostics Vital Signs (24Hr): Vital Signs - 24 hr 11/26/24 20:00 11/27/24 08:00 Temperature 97.9 F 98.1 F Pulse Rate 65 72 Respiratory Rate 18 18 Blood Pressure 125/61 133/73 Pulse Oximetry 99 99 Oxygen Delivery Method Room Air Room Air BMI result Body Mass Index 30.7 Labs 11/20/24 12:55 11/23/24 06:50 Labs: Laboratory Results - last 48 hr 11/26/24 13:56 Prolactin 12.0 Imaging Radiology Impressions: ITS Impressions Hip/Pelvis X-Ray 11/20/24 12:17 IMPRESSION: Total left hip arthroplasty prosthesis without acute fracture or dislocation. Mild osteoarthrosis, right hip. Electronically signed by: Morro Funk MD 11/20/2024 01:24 PM EDT RP Head CT 11/20/24 13:05 IMPRESSION: No acute fracture, bony calvarium. No acute intracranial hemorrhage. Small vessel occlusive disease. Atherosclerosis disease. Electronically signed by: Morro Funk MD 11/20/2024 01:30 PM EDT RP Medications Medications Current Medications Acetaminophen (Acetaminophen 325 Mg Tablet) 650 mg PO Q6H PRN PRN Reason: Headache/Pain, Scale 1-10 Last Admin: 11/27/24 08:21 Dose: 650 mg Al Hydroxide/Mg Hydroxide (Magnesium Hydrox/Alum Hydrox 30 Ml Oral.Susp) 30 ml PO Q6H PRN PRN Reason: Heartburn/Nausea Aspirin (Aspirin Enteric Coated 81 Mg Tablet.) 81 mg PO BID [facility] Last Admin: 11/27/24 08:21 Dose: 81 mg Atenolol (Atenolol 100 Mg Tablet) 100 mg PO DAILY [facility]; Protocol Last Admin: 11/27/24 08:19 Dose: 100 mg Docusate Sodium (Docusate Sodium 100 Mg Capsule) 100 mg PO BID [facility] Last Admin: 11/27/24 08:19 Dose: 100 mg Ferrous Sulfate (Ferrous Sulfate 324 Mg Tablet.) 324 mg PO DAILY [facility] Last Admin: 11/27/24 08:18 Dose: 324 mg Ibuprofen (Ibuprofen 600 Mg Tablet) 600 mg PO RQ6H PRN PRN Reason: Pain, Severe (Pain Scale 7-10) Lamotrigine (Lamotrigine 25 Mg Tablet) 25 mg PO BEDTIME [facility] Last Admin: 11/26/24 19:51 Dose: 25 mg Losartan Potassium (Losartan Potassium 50 Mg Tablet) 50 mg PO DAILY [facility]; Protocol Last Admin: 11/27/24 08:19 Dose: 50 mg Magnesium Hydroxide (Milk Of Magnesia 30 Ml Oral.Susp) 30 ml PO DAILY PRN PRN Reason: Constipation Melatonin (Melatonin 3 Mg Tablet) 6 mg PO BEDTIME [facility] Last Admin: 11/26/24 19:51 Dose: 6 mg Morphine Sulfate (Morphine Sulfate Immed Release 15 Mg Tablet) 15 mg PO Q4H PRN PRN Reason: Pain, Severe (Pain Scale 7-10) Last Admin: 11/20/24 16:24 Dose: 15 mg Oxycodone HCl (Oxycodone Hcl Immed Release 5 Mg Tablet) 5 mg PO Q8H PRN PRN Reason: Moderate Pain (Scale Score 5-6) Last Admin: 11/27/24 11:42 Dose: 5 mg Risperidone (Risperidone 0.5 Mg Tablet) 0.5 mg PO Q4H PRN PRN Reason: racing thoughts/anxiety Senna (Sennosides 8.6 Mg Tablet) 17.2 mg PO BEDTIME [facility] Last Admin: 07/15/25 21:24 Dose: Not Given Trazodone HCl (Trazodone Hcl 50 Mg Tablet) 50 mg PO BEDTIME PRN PRN Reason: Insomnia Last Admin: 11/26/24 19:52 Dose: 50 mg Venlafaxine HCl (Venlafaxine Hcl Er 75 Mg Cap.Er.24h) 225 mg PO DAILY [facility] Last Admin: 11/27/24 08:18 Dose: 225 mg Allergies Allergies Allergy/AdvReac Type Severity Reaction Status Date / Time No Known Allergies Allergy Verified 11/20/24 11:06 Assessment & Plan Assessment & Plan (1) Postoperative anemia: Status: Acute Code(s): D64.9 - Anemia, unspecified Assessment and Plan: Depression with suicidal ideation Treatment plan per Psychiatry History of pituitary tumor Follow up with Neurology in [place] outpatient Status post left hip ORIF Continue aspirin b.i.d. for 42 days postop. Ambulate with walker Patient is weight bear as tolerated left hip H&H 10.3/32.9 Possible postoperative anemia, we will start iron Colace and senna due to risk for constipation with narcotics use-hold for loose stool Hypertension Continue with atenolol and losartan Blood pressure stable (2) Major depression, recurrent: Status: Acute Code(s): F33.9 - Major depressive disorder, recurrent, unspecified Plan Formulation/clinical reasoning: Overdose on prescription medication in November 05,one prior attempt on overdose medication when she was in college, increases depression, sleep and appetite was not great lately, increased stress from family with housing issue- Reports PTSD living with the [id number] it as a toxic relationship but still have to stay in the same house. Reports history of avel episode. Given above information, patient would be benefit for inpatient restrictive environment for own safety. Diagnostic, medication management, and refer to outpatient psychiatric services. Hospital course: 11/22- 11/23: Alert and oriented x4. No SI/SIB/HI/AVH: Mood is embarrassed . Continue with home medication. Educate patient on consistently taking her medication to avoid relapsed on depression and anxiety. Also avoid withdrawal symptoms for stopped abruptly her Effexor. It takes her for awhile to make decision to continue with this medication with those increased, but she agrees with the plan to increase from 150-225 mg daily in the morning. Started melatonin 6 mg at bedtime for insomnia. Could need more information to to identify if she has bipolar I versus bipolar II, versus MDD. We will do Collateral with her daughter Patient ambulate with a walker for own safety. 11/24 Patient reports that she is feeling a little better. She says she can tell this because I am not crying all the time.... Not over thinking so much... She feels that increased Effexor is helping and would like to continue with current treatment plan. 11/25: remains depressed, concerned about pituitary tumor Hx. probably bipolar II Dx, T/C mood stabilizer. increase effexor to 225 tomorrow. 11/26: probable bipolar II Dx discussed, pt agreeable to start lamictal 25 mg QHS for hypomania prophylaxis and anti-depressant efficacy in bipolar disorder. 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 feeling better with increasing doses of effexor. 11/27: thoughts racing. will try risperidone 0.5 mg PRN. prolactin WNL, reviewed with pt, low likelihood of pituitary adenoma recurrence. thinking about discharge, wants referrals for therapy and psych MD. D/W SHAVON. Reason for continued inpatient stay Substantial Risk for: harm to self, inability to function and rapid decompensation Time Spent With Patient Time: Total time managing care of this patient today _35__ minutes.
[2024-11-27 20:00] VITALS: BP 123/68; PULSE 62; RESP 16; TEMP 36.4; O2SAT 99
[2024-11-28] MEDS: oxyCODONE HCl Immed Release 5 MG TABLET PO ×2 (01:03→20:11)
[2024-11-28 07:52] VITALS: BP 117/62; PULSE 66; RESP 16; TEMP 36.9; O2SAT 97
[2024-11-28] MEDS: Aspirin Enteric Coated 81 MG TABLET.DR PO ×2 (08:03→20:08)
[2024-11-28] MEDS: Venlafaxine HCl ER 75 MG CAP.ER.24H 225 MG PO (08:03)
[2024-11-28] MEDS: Ferrous Sulfate 324 MG TABLET.DR PO (08:04)
[2024-11-28 12:46] VITALS: BMI 30.4
--- NOTE | 2024-11-28 14:16 | HO.PSYCHPN ---
Subjective Subjective Date of Service: 11/28/24 Reason For Visit: Sent from [facility] for eval Interim History: mood continuing to improve. discussing discharge next week. has not tried risperidone PRN, was encouraged to do so prior to our meeting tomorrow. no other complaints or requests. Mental Status Exam Mental Status Exam Narrative: Patient is alert and oriented x4 ; behavior is isolating to self but cooperative, friendly on approach; patient is not in distress; dressed in own attire with adequate hygiene; . mood is described as improved and affect congruent, calm; eye contact appropriate; Speech is normal rate, volume and prosody and not pressured; psychomotor retardation not obviously present; thought process is organized and goal directed, help seeking; Thought content is on treatment, pertinent to relevant topics and without any delusional content, paranoid ideation or grandiosity; denies any SI/SIB/HI. Denies AH and there is no evidence of perceptual disturbance. Patient's insight and judgment improving. Diagnostics Vital Signs (24Hr): Vital Signs - 24 hr 11/27/24 20:00 11/28/24 07:52 Temperature 97.5 F 98.4 F Pulse Rate 62 66 Respiratory Rate 16 16 Blood Pressure 123/68 117/62 Pulse Oximetry 99 97 Oxygen Delivery Method Room Air Room Air BMI result Body Mass Index 30.4 Labs 11/20/24 12:55 11/23/24 06:50 Labs: Laboratory Results - last 48 hr 11/26/24 13:56 Prolactin 12.0 Imaging Radiology Impressions: ITS Impressions Hip/Pelvis X-Ray 11/20/24 12:17 IMPRESSION: Total left hip arthroplasty prosthesis without acute fracture or dislocation. Mild osteoarthrosis, right hip. Electronically signed by: Morro Funk MD 11/20/2024 01:24 PM EDT RP Head CT 11/20/24 13:05 IMPRESSION: No acute fracture, bony calvarium. No acute intracranial hemorrhage. Small vessel occlusive disease. Atherosclerosis disease. Electronically signed by: Morro Funk MD 11/20/2024 01:30 PM EDT Medications Medications Current Medications Acetaminophen (Acetaminophen 325 Mg Tablet) 650 mg PO Q6H PRN PRN Reason: Headache/Pain, Scale 1-10 Last Admin: 11/28/24 07:53 Dose: 650 mg Al Hydroxide/Mg Hydroxide (Magnesium Hydrox/Alum Hydrox 30 Ml Oral.Susp) 30 ml PO Q6H PRN PRN Reason: Heartburn/Nausea Aspirin (Aspirin Enteric Coated 81 Mg Tablet.) 81 mg PO BID [facility] Last Admin: 11/28/24 08:03 Dose: 81 mg Atenolol (Atenolol 100 Mg Tablet) 100 mg PO DAILY [facility]; Protocol Last Admin: 11/28/24 08:04 Dose: 100 mg Docusate Sodium (Docusate Sodium 100 Mg Capsule) 100 mg PO BID [facility] Last Admin: 11/28/24 08:03 Dose: 100 mg Ferrous Sulfate (Ferrous Sulfate 324 Mg Tablet.) 324 mg PO DAILY [facility] Last Admin: 11/28/24 08:04 Dose: 324 mg Ibuprofen (Ibuprofen 600 Mg Tablet) 600 mg PO RQ6H PRN PRN Reason: Pain, Severe (Pain Scale 7-10) Lamotrigine (Lamotrigine 25 Mg Tablet) 25 mg PO BEDTIME [facility] Last Admin: 11/27/24 20:12 Dose: 25 mg Losartan Potassium (Losartan Potassium 50 Mg Tablet) 50 mg PO DAILY [facility]; Protocol Last Admin: 11/28/24 08:03 Dose: 50 mg Magnesium Hydroxide (Milk Of Magnesia 30 Ml Oral.Susp) 30 ml PO DAILY PRN PRN Reason: Constipation Melatonin (Melatonin 3 Mg Tablet) 6 mg PO BEDTIME [facility] Last Admin: 11/27/24 20:12 Dose: 6 mg Morphine Sulfate (Morphine Sulfate Immed Release 15 Mg Tablet) 15 mg PO Q4H PRN PRN Reason: Pain, Severe (Pain Scale 7-10) Last Admin: 11/20/24 16:24 Dose: 15 mg Oxycodone HCl (Oxycodone Hcl Immed Release 5 Mg Tablet) 5 mg PO Q8H PRN PRN Reason: Moderate Pain (Scale Score 5-6) Last Admin: 11/28/24 01:03 Dose: 5 mg Risperidone (Risperidone 0.5 Mg Tablet) 0.5 mg PO Q4H PRN PRN Reason: racing thoughts/anxiety Senna (Sennosides 8.6 Mg Tablet) 17.2 mg PO BEDTIME [facility] Last Admin: 11/27/24 20:12 Dose: 17.2 mg Trazodone HCl (Trazodone Hcl 50 Mg Tablet) 50 mg PO BEDTIME PRN PRN Reason: Insomnia Last Admin: 11/28/24 01:02 Dose: 50 mg Venlafaxine HCl (Venlafaxine Hcl Er 75 Mg Cap.Er.24h) 225 mg PO DAILY [facility] Last Admin: 11/28/24 08:03 Dose: 225 mg Allergies Allergies Allergy/AdvReac Type Severity Reaction Status Date / Time No Known Allergies Allergy Verified 11/20/24 11:06 Assessment & Plan Assessment & Plan (1) Postoperative anemia: Status: Acute Code(s): D64.9 - Anemia, unspecified Assessment and Plan: Depression with suicidal ideation Treatment plan per Psychiatry History of pituitary tumor Follow up with Neurology in [place] outpatient Status post left hip ORIF Continue aspirin b.i.d. for 42 days postop. Ambulate with walker Patient is weight bear as tolerated left hip H&H 10.3/32.9 Possible postoperative anemia, we will start iron Colace and senna due to risk for constipation with narcotics use-hold for loose stool Hypertension Continue with atenolol and losartan Blood pressure stable (2) Major depression, recurrent: Status: Acute Code(s): F33.9 - Major depressive disorder, recurrent, unspecified Plan Formulation/clinical reasoning: Overdose on prescription medication in November 05,one prior attempt on overdose medication when she was in college, increases depression, sleep and appetite was not great lately, increased stress from family with housing issue- Reports PTSD living with the [id number] it as a toxic relationship but still have to stay in the same house. Reports history of avel episode. Given above information, patient would be benefit for inpatient restrictive environment for own safety. Diagnostic, medication management, and refer to outpatient psychiatric services. Hospital course: 11/22- 11/23: Alert and oriented x4. No SI/SIB/HI/AVH: Mood is embarrassed . Continue with home medication. Educate patient on consistently taking her medication to avoid relapsed on depression and anxiety. Also avoid withdrawal symptoms for stopped abruptly her Effexor. It takes her for awhile to make decision to continue with this medication with those increased, but she agrees with the plan to increase from 150-225 mg daily in the morning. Started melatonin 6 mg at bedtime for insomnia. Could need more information to to identify if she has bipolar I versus bipolar II, versus MDD. We will do Collateral with her daughter Patient ambulate with a walker for own safety. 11/24 Patient reports that she is feeling a little better. She says she can tell this because I am not crying all the time.... Not over thinking so much... She feels that increased Effexor is helping and would like to continue with current treatment plan. 11/25: remains depressed, concerned about pituitary tumor Hx. probably bipolar II Dx, T/C mood stabilizer. increase effexor to 225 tomorrow. 11/26: probable bipolar II Dx discussed, pt agreeable to start lamictal 25 mg QHS for hypomania prophylaxis and anti-depressant efficacy in bipolar disorder. 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 feeling better with increasing doses of effexor. 11/27: thoughts racing. will try risperidone 0.5 mg PRN. prolactin WNL, reviewed with pt, low likelihood of pituitary adenoma recurrence. thinking about discharge, wants referrals for therapy and psych MD. D/W SW. 11/28: has not yet tried risperidone PRN for racing thoughts, was encouraged to do so in the next 24H. planning for discharge next week. mood continues to improve. continue current mgmt otherwise. Reason for continued inpatient stay Substantial Risk for: harm to self, inability to function and rapid decompensation Time Spent With Patient Time: Total time managing care of this patient today __25__ minutes.
[2024-11-28 20:00] VITALS: BP 121/65; PULSE 61; RESP 18; TEMP 36.8; O2SAT 97
[2024-11-29 08:28] VITALS: BP 123/59; PULSE 70; RESP 18; TEMP 36.5; O2SAT 95
[2024-11-29] MEDS: Venlafaxine HCl ER 75 MG CAP.ER.24H 225 MG PO (08:30)
[2024-11-29] MEDS: Ferrous Sulfate 324 MG TABLET.DR PO (08:30)
[2024-11-29] MEDS: Aspirin Enteric Coated 81 MG TABLET.DR PO ×2 (08:31→19:49)
--- NOTE | 2024-11-29 12:45 | P.PNPSI_ITS ---
Subjective Subjective Date of Service: 11/29/24 Reason For Visit: Sent from [facility] for eval Interim History: pleasant, seated in her bed. states she is doing great, citing she has heard thatr discharge is planned for monday. will get lockbox for meds. daughter coming to pick her up. discuss risperidone, she has not tried it. agreeable to try one-time dose now to guide use moving forward. Mental Status Exam Mental Status Exam Narrative: Patient is alert and oriented x4 ; behavior is isolating to self but cooperative, friendly on approach; patient is not in distress; dressed in own attire with adequate hygiene; . mood is described as improved and affect congruent, calm; eye contact appropriate; Speech is normal rate, volume and prosody and not pressured; psychomotor retardation not obviously present; thought process is organized and goal directed, help seeking; Thought content is on treatment, pertinent to relevant topics and without any delusional content, paranoid ideation or grandiosity; denies any SI/SIB/HI. Denies AH and there is no evidence of perceptual disturbance. Patient's insight and judgment improving. Diagnostics Vital Signs (24Hr): Vital Signs - 24 hr 11/28/24 20:00 11/29/24 08:28 Temperature 98.2 F 97.7 F Pulse Rate 61 70 Respiratory Rate 18 18 Blood Pressure 121/65 123/59 L Pulse Oximetry 97 95 Oxygen Delivery Method Room Air Room Air BMI result Body Mass Index 30.4 Labs 11/20/24 12:55 11/23/24 06:50 Imaging Radiology Impressions: ITS Impressions Hip/Pelvis X-Ray 11/20/24 12:17 IMPRESSION: Total left hip arthroplasty prosthesis without acute fracture or dislocation. Mild osteoarthrosis, right hip. Electronically signed by: Morro Funk MD 11/20/2024 01:24 PM EDT RP Head CT 11/20/24 13:05 IMPRESSION: No acute fracture, bony calvarium. No acute intracranial hemorrhage. Small vessel occlusive disease. Atherosclerosis disease. Electronically signed by: Morro Funk MD 11/20/2024 01:30 PM EDT RP Medications Medications Current Medications Acetaminophen (Acetaminophen 325 Mg Tablet) 650 mg PO Q6H PRN PRN Reason: Headache/Pain, Scale 1-10 Last Admin: 11/28/24 07:53 Dose: 650 mg Al Hydroxide/Mg Hydroxide (Magnesium Hydrox/Alum Hydrox 30 Ml Oral.Susp) 30 ml PO Q6H PRN PRN Reason: Heartburn/Nausea Aspirin (Aspirin Enteric Coated 81 Mg Tablet.) 81 mg PO BID [facility] Last Admin: 11/29/24 08:31 Dose: 81 mg Atenolol (Atenolol 100 Mg Tablet) 100 mg PO DAILY [facility]; Protocol Last Admin: 11/29/24 08:31 Dose: 100 mg Docusate Sodium (Docusate Sodium 100 Mg Capsule) 100 mg PO BID [facility] Last Admin: 11/29/24 08:30 Dose: 100 mg Ferrous Sulfate (Ferrous Sulfate 324 Mg Tablet.) 324 mg PO DAILY [facility] Last Admin: 11/29/24 08:30 Dose: 324 mg Ibuprofen (Ibuprofen 600 Mg Tablet) 600 mg PO RQ6H PRN PRN Reason: Pain, Severe (Pain Scale 7-10) Lamotrigine (Lamotrigine 25 Mg Tablet) 25 mg PO BEDTIME [facility] Last Admin: 11/28/24 20:08 Dose: 25 mg Losartan Potassium (Losartan Potassium 50 Mg Tablet) 50 mg PO DAILY [facility]; Protocol Last Admin: 11/29/24 08:30 Dose: 50 mg Magnesium Hydroxide (Milk Of Magnesia 30 Ml Oral.Susp) 30 ml PO DAILY PRN PRN Reason: Constipation Melatonin (Melatonin 3 Mg Tablet) 6 mg PO BEDTIME [facility] Last Admin: 11/28/24 20:13 Dose: Not Given Morphine Sulfate (Morphine Sulfate Immed Release 15 Mg Tablet) 15 mg PO Q4H PRN PRN Reason: Pain, Severe (Pain Scale 7-10) Last Admin: 11/20/24 16:24 Dose: 15 mg Oxycodone HCl (Oxycodone Hcl Immed Release 5 Mg Tablet) 5 mg PO Q8H PRN PRN Reason: Moderate Pain (Scale Score 5-6) Last Admin: 11/28/24 20:11 Dose: 5 mg Risperidone (Risperidone 0.5 Mg Tablet) 0.5 mg PO Q4H PRN PRN Reason: racing thoughts/anxiety Senna (Sennosides 8.6 Mg Tablet) 17.2 mg PO BEDTIME [facility] Last Admin: 11/28/24 20:08 Dose: 17.2 mg Trazodone HCl (Trazodone Hcl 50 Mg Tablet) 50 mg PO BEDTIME PRN PRN Reason: Insomnia Last Admin: 11/29/24 01:09 Dose: 50 mg Venlafaxine HCl (Venlafaxine Hcl Er 75 Mg Cap.Er.24h) 225 mg PO DAILY [facility] Last Admin: 11/29/24 08:30 Dose: 225 mg Allergies Allergies Allergy/AdvReac Type Severity Reaction Status Date / Time No Known Allergies Allergy Verified 11/20/24 11:06 Assessment & Plan Assessment & Plan (1) Postoperative anemia: Status: Acute Code(s): D64.9 - Anemia, unspecified Assessment and Plan: Depression with suicidal ideation Treatment plan per Psychiatry History of pituitary tumor Follow up with Neurology in [place] outpatient Status post left hip ORIF Continue aspirin b.i.d. for 42 days postop. Ambulate with walker Patient is weight bear as tolerated left hip H&H 10.3/32.9 Possible postoperative anemia, we will start iron Colace and senna due to risk for constipation with narcotics use-hold for loose stool Hypertension Continue with atenolol and losartan Blood pressure stable (2) Major depression, recurrent: Status: Acute Code(s): F33.9 - Major depressive disorder, recurrent, unspecified Plan Formulation/clinical reasoning: Overdose on prescription medication in November 05,one prior attempt on overdose medication when she was in college, increases depression, sleep and appetite was not great lately, increased stress from family with housing issue- Reports PTSD living with the [id number] it as a toxic relationship but still have to stay in the same house. Reports history of avel episode. Given above information, patient would be benefit for inpatient restrictive environment for own safety. Diagnostic, medication management, and refer to outpatient psychiatric services. Hospital course: 11/22- 11/23: Alert and oriented x4. No SI/SIB/HI/AVH: Mood is embarrassed . Continue with home medication. Educate patient on consistently taking her medication to avoid relapsed on depression and anxiety. Also avoid withdrawal symptoms for stopped abruptly her Effexor. It takes her for awhile to make decision to continue with this medication with those increased, but she agrees with the plan to increase from 150-225 mg daily in the morning. Started melatonin 6 mg at bedtime for insomnia. Could need more information to to identify if she has bipolar I versus bipolar II, versus MDD. We will do Collateral with her daughter Patient ambulate with a walker for own safety. 11/24 Patient reports that she is feeling a little better. She says she can tell this because I am not crying all the time.... Not over thinking so much... She feels that increased Effexor is helping and would like to continue with current treatment plan. 11/25: remains depressed, concerned about pituitary tumor Hx. probably bipolar II Dx, T/C mood stabilizer. increase effexor to 225 tomorrow. 11/26: probable bipolar II Dx discussed, pt agreeable to start lamictal 25 mg QHS for hypomania prophylaxis and anti-depressant efficacy in bipolar disorder. 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 feeling better with increasing doses of effexor. 11/27: thoughts racing. will try risperidone 0.5 mg PRN. prolactin WNL, reviewed with pt, low likelihood of pituitary adenoma recurrence. thinking about discharge, wants referrals for therapy and psych MD. D/W SHAVON. 11/28: has not yet tried risperidone PRN for racing thoughts, was encouraged to do so in the next 24H. planning for discharge next week. mood continues to improve. continue current mgmt otherwise. 11/29: reports mood doing great, knowing will discharge next monday. will get lockbox for meds. daughter coming to get her. willing to try one-time risperidone dose to assess effect. otherwise continue current mgmt for now. Reason for continued inpatient stay Substantial Risk for: harm to self, inability to function and rapid decompensation Time Spent With Patient Time: Total time managing care of this patient today __25__ minutes.
[2024-11-29 19:46] VITALS: BP 117/67; PULSE 68; RESP 16; TEMP 36.4; O2SAT 99
[2024-11-29] MEDS: oxyCODONE HCl Immed Release 5 MG TABLET PO (19:50)
[2024-11-30 08:01] VITALS: BP 127/72; PULSE 72; RESP 19; TEMP 37.1; O2SAT 97
[2024-11-30] MEDS: Ferrous Sulfate 324 MG TABLET.DR PO (08:08)
[2024-11-30] MEDS: Venlafaxine HCl ER 75 MG CAP.ER.24H 225 MG PO (08:09)
[2024-11-30] MEDS: Aspirin Enteric Coated 81 MG TABLET.DR PO ×2 (08:10→20:06)
--- NOTE | 2024-11-30 09:41 | P.PNPSI_ITS ---
Subjective Subjective Date of Service: 11/30/24 Reason For Visit: Sent from [facility] for eval Interim History: Pt seen, discussed with her team. Discussed Risperdal being very effective for racing thoughts, sleep and grounding of thoughts. She is pleased with this trial Medication Compliance: Yes Side effects from medications: No Attending Groups: Yes Review of Systems Acute medical concerns: No Medical Review of Systems: unchanged Review of Systems Review of Systems Hip pain s/p fall Constipation due to pain medicine Mental Status Exam Mental Status Exam Patient Appearance: Appropriate Patient Orientation: Person, Place, Time and Situation Level of Consciousness: Alert Patient Behavior: Talkative and Good Eye Contact Mood Description: Constricted Affect Description: Constricted Patient Cognition Impaired: No Ability to Follow Directions: Good Speech Pattern: Spontaneous Speech Memory Description: Intact Hallucinations: None Delusions: Not Present Thought Process: Intact Thought Content: positive for Intact and positive for Goal Oriented Judgement: Fair Diagnostics Vital Signs (24Hr): Vital Signs - 24 hr 11/29/24 19:46 11/30/24 08:01 Temperature 97.5 F 98.8 F Pulse Rate 68 72 Respiratory Rate 16 19 Blood Pressure 117/67 127/72 Pulse Oximetry 99 97 Oxygen Delivery Method Room Air Room Air BMI result Body Mass Index 30.4 Labs 11/20/24 12:55 11/23/24 06:50 Imaging Radiology Impressions: ITS Impressions Hip/Pelvis X-Ray 11/20/24 12:17 IMPRESSION: Total left hip arthroplasty prosthesis without acute fracture or dislocation. Mild osteoarthrosis, right hip. Electronically signed by: Morro Funk MD 11/20/2024 01:24 PM EDT RP Head CT 11/20/24 13:05 IMPRESSION: No acute fracture, bony calvarium. No acute intracranial hemorrhage. Small vessel occlusive disease. Atherosclerosis disease. Electronically signed by: Morro Funk MD 11/20/2024 01:30 PM EDT RP Medications Medications Current Medications Acetaminophen (Acetaminophen 325 Mg Tablet) 650 mg PO Q6H PRN PRN Reason: Headache/Pain, Scale 1-10 Last Admin: 11/28/24 07:53 Dose: 650 mg Al Hydroxide/Mg Hydroxide (Magnesium Hydrox/Alum Hydrox 30 Ml Oral.Susp) 30 ml PO Q6H PRN PRN Reason: Heartburn/Nausea Aspirin (Aspirin Enteric Coated 81 Mg Tablet.) 81 mg PO BID [facility] Last Admin: 11/30/24 08:10 Dose: 81 mg Atenolol (Atenolol 100 Mg Tablet) 100 mg PO DAILY [facility]; Protocol Last Admin: 11/30/24 08:09 Dose: 100 mg Docusate Sodium (Docusate Sodium 100 Mg Capsule) 100 mg PO BID [facility] Last Admin: 11/30/24 08:08 Dose: 100 mg Ferrous Sulfate (Ferrous Sulfate 324 Mg Tablet.) 324 mg PO DAILY [facility] Last Admin: 11/30/24 08:08 Dose: 324 mg Ibuprofen (Ibuprofen 600 Mg Tablet) 600 mg PO RQ6H PRN PRN Reason: Pain, Severe (Pain Scale 7-10) Lamotrigine (Lamotrigine 25 Mg Tablet) 25 mg PO BEDTIME [facility] Last Admin: 11/29/24 19:49 Dose: 25 mg Losartan Potassium (Losartan Potassium 50 Mg Tablet) 50 mg PO DAILY [facility]; Protocol Last Admin: 11/30/24 08:08 Dose: 50 mg Magnesium Hydroxide (Milk Of Magnesia 30 Ml Oral.Susp) 30 ml PO DAILY PRN PRN Reason: Constipation Melatonin (Melatonin 3 Mg Tablet) 6 mg PO BEDTIME [facility] Last Admin: 11/29/24 19:50 Dose: Not Given Morphine Sulfate (Morphine Sulfate Immed Release 15 Mg Tablet) 15 mg PO Q4H PRN PRN Reason: Pain, Severe (Pain Scale 7-10) Last Admin: 11/20/24 16:24 Dose: 15 mg Oxycodone HCl (Oxycodone Hcl Immed Release 5 Mg Tablet) 5 mg PO Q8H PRN PRN Reason: Moderate Pain (Scale Score 5-6) Last Admin: 11/29/24 19:50 Dose: 5 mg Risperidone (Risperidone 0.5 Mg Tablet) 0.5 mg PO Q4H PRN PRN Reason: racing thoughts/anxiety Senna (Sennosides 8.6 Mg Tablet) 17.2 mg PO BEDTIME [facility] Last Admin: 11/29/24 19:50 Dose: 17.2 mg Trazodone HCl (Trazodone Hcl 50 Mg Tablet) 50 mg PO BEDTIME PRN PRN Reason: Insomnia Last Admin: 11/29/24 19:49 Dose: 50 mg Venlafaxine HCl (Venlafaxine Hcl Er 75 Mg Cap.Er.24h) 225 mg PO DAILY [facility] Last Admin: 11/30/24 08:09 Dose: 225 mg Allergies Allergies Allergy/AdvReac Type Severity Reaction Status Date / Time No Known Allergies Allergy Verified 11/20/24 11:06 Assessment & Plan Assessment & Plan (1) Postoperative anemia: Status: Acute Code(s): D64.9 - Anemia, unspecified Assessment and Plan: Depression with suicidal ideation Treatment plan per Psychiatry History of pituitary tumor Follow up with Neurology in [place] outpatient Status post left hip ORIF Continue aspirin b.i.d. for 42 days postop. Ambulate with walker Patient is weight bear as tolerated left hip H&H 10.3/32.9 Possible postoperative anemia, we will start iron Colace and senna due to risk for constipation with narcotics use-hold for loose stool Hypertension Continue with atenolol and losartan Blood pressure stable (2) Major depression, recurrent: Status: Acute Code(s): F33.9 - Major depressive disorder, recurrent, unspecified Plan Formulation/clinical reasoning: Overdose on prescription medication in November 05,one prior attempt on overdose medication when she was in college, increases depression, sleep and appetite was not great lately, increased stress from family with housing issue- Reports PTSD living with the [id number] it as a toxic relationship but still have to stay in the same house. Reports history of avel episode. Given above information, patient would be benefit for inpatient restrictive environment for own safety. Diagnostic, medication management, and refer to outpatient psychiatric services. Hospital course: 11/22- 11/23: Alert and oriented x4. No SI/SIB/HI/AVH: Mood is embarrassed . Continue with home medication. Educate patient on consistently taking her medication to avoid relapsed on depression and anxiety. Also avoid withdrawal symptoms for stopped abruptly her Effexor. It takes her for awhile to make decision to continue with this medication with those increased, but she agrees with the plan to increase from 150-225 mg daily in the morning. Started melatonin 6 mg at bedtime for insomnia. Could need more information to to identify if she has bipolar I versus bipolar II, versus MDD. We will do Collateral with her daughter Patient ambulate with a walker for own safety. 11/24 Patient reports that she is feeling a little better. She says she can tell this because I am not crying all the time.... Not over thinking so much... She feels that increased Effexor is helping and would like to continue with current treatment plan. 11/25: remains depressed, concerned about pituitary tumor Hx. probably bipolar II Dx, T/C mood stabilizer. increase effexor to 225 tomorrow. 11/26: probable bipolar II Dx discussed, pt agreeable to start lamictal 25 mg QHS for hypomania prophylaxis and anti-depressant efficacy in bipolar disorder. 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 feeling better with increasing doses of effexor. 11/27: thoughts racing. will try risperidone 0.5 mg PRN. prolactin WNL, reviewed with pt, low likelihood of pituitary adenoma recurrence. thinking about discharge, wants referrals for therapy and psych MD. D/W SHAVON. 11/28: has not yet tried risperidone PRN for racing thoughts, was encouraged to do so in the next 24H. planning for discharge next week. mood continues to improve. continue current mgmt otherwise. 11/29: reports mood doing great, knowing will discharge next monday. will get lockbox for meds. daughter coming to get her. willing to try one-time risperidone dose to assess effect. otherwise continue current mgmt for now. 11/30: Continue tx Risperdal she reports is working Reason for continued inpatient stay Substantial Risk for: rapid decompensation Time Spent With Patient Time: Total time managing care of this patient today ____ minutes.
[2024-11-30 20:03] VITALS: BP 123/63; PULSE 65; RESP 16; TEMP 36.7; O2SAT 95
[2024-11-30] MEDS: oxyCODONE HCl Immed Release 5 MG TABLET PO (20:06)
[2024-12-01 08:00] VITALS: BP 126/60; PULSE 86; RESP 12; TEMP 36.4; O2SAT 100
[2024-12-01] MEDS: Venlafaxine HCl ER 75 MG CAP.ER.24H 225 MG PO (08:33)
[2024-12-01] MEDS: Ferrous Sulfate 324 MG TABLET.DR PO (08:34)
[2024-12-01] MEDS: Aspirin Enteric Coated 81 MG TABLET.DR PO ×2 (08:34→21:04)
[2024-12-01] MEDS: oxyCODONE HCl Immed Release 5 MG TABLET PO ×2 (10:25→21:04)
--- NOTE | 2024-12-01 13:31 | HO.PSYCHPN ---
Subjective Subjective Date of Service: 12/01/24 Reason For Visit: Sent from [facility] for eval Interim History: Met with pt, discussed with team who report an upsetting call with family-pt was anxious, crying, using prn meds. Met with pt who reports niece visited and I need to work on those coping skills you are teaching me. States she is learning that she wants to not advise family and mind my own business focus on what I need to do and minimize my involvement in others problems. Continues to find Risperdal helpful. Medication Compliance: Yes Side effects from medications: No Attending Groups: Yes Review of Systems Acute medical concerns: No Medical Review of Systems: unchanged Mental Status Exam Mental Status Exam Patient Appearance: Appropriate Patient Orientation: Person, Place, Time and Situation Level of Consciousness: Alert Patient Behavior: Talkative and Good Eye Contact Mood Description: Constricted Affect Description: Constricted Patient Cognition Impaired: No Ability to Follow Directions: Good Speech Pattern: Spontaneous Speech Memory Description: Intact Hallucinations: None Delusions: Not Present Thought Process: Intact Thought Content: positive for Intact and positive for Goal Oriented Judgement: Fair Diagnostics Vital Signs (24Hr): Vital Signs - 24 hr 11/30/24 20:03 12/01/24 08:00 Temperature 98.1 F 97.5 F Pulse Rate 65 86 Respiratory Rate 16 12 Blood Pressure 123/63 126/60 Pulse Oximetry 95 100 Oxygen Delivery Method Room Air Room Air BMI result Body Mass Index 30.4 Labs 11/20/24 12:55 11/23/24 06:50 Imaging Radiology Impressions: ITS Impressions Hip/Pelvis X-Ray 11/20/24 12:17 IMPRESSION: Total left hip arthroplasty prosthesis without acute fracture or dislocation. Mild osteoarthrosis, right hip. Electronically signed by: Morro Funk MD 11/20/2024 01:24 PM EDT RP Head CT 11/20/24 13:05 IMPRESSION: No acute fracture, bony calvarium. No acute intracranial hemorrhage. Small vessel occlusive disease. Atherosclerosis disease. Electronically signed by: Morro Funk MD 11/20/2024 01:30 PM EDT RP Medications Medications Current Medications Acetaminophen (Acetaminophen 325 Mg Tablet) 650 mg PO Q6H PRN PRN Reason: Headache/Pain, Scale 1-10 Last Admin: 11/28/24 07:53 Dose: 650 mg Al Hydroxide/Mg Hydroxide (Magnesium Hydrox/Alum Hydrox 30 Ml Oral.Susp) 30 ml PO Q6H PRN PRN Reason: Heartburn/Nausea Aspirin (Aspirin Enteric Coated 81 Mg Tablet.) 81 mg PO BID [facility] Last Admin: 12/01/24 08:34 Dose: 81 mg Atenolol (Atenolol 100 Mg Tablet) 100 mg PO DAILY [facility]; Protocol Last Admin: 12/01/24 08:34 Dose: 100 mg Docusate Sodium (Docusate Sodium 100 Mg Capsule) 100 mg PO BID [facility] Last Admin: 12/01/24 08:35 Dose: 100 mg Ferrous Sulfate (Ferrous Sulfate 324 Mg Tablet.) 324 mg PO DAILY [facility] Last Admin: 12/01/24 08:34 Dose: 324 mg Ibuprofen (Ibuprofen 600 Mg Tablet) 600 mg PO RQ6H PRN PRN Reason: Pain, Severe (Pain Scale 7-10) Lamotrigine (Lamotrigine 25 Mg Tablet) 25 mg PO BEDTIME [facility] Last Admin: 11/30/24 20:06 Dose: 25 mg Losartan Potassium (Losartan Potassium 50 Mg Tablet) 50 mg PO DAILY [facility]; Protocol Last Admin: 12/01/24 08:35 Dose: 50 mg Magnesium Hydroxide (Milk Of Magnesia 30 Ml Oral.Susp) 30 ml PO DAILY PRN PRN Reason: Constipation Melatonin (Melatonin 3 Mg Tablet) 6 mg PO BEDTIME [facility] Last Admin: 11/30/24 20:12 Dose: Not Given Morphine Sulfate (Morphine Sulfate Immed Release 15 Mg Tablet) 15 mg PO Q4H PRN PRN Reason: Pain, Severe (Pain Scale 7-10) Last Admin: 11/20/24 16:24 Dose: 15 mg Oxycodone HCl (Oxycodone Hcl Immed Release 5 Mg Tablet) 5 mg PO Q8H PRN PRN Reason: Moderate Pain (Scale Score 5-6) Last Admin: 12/01/24 10:25 Dose: 5 mg Risperidone (Risperidone 0.5 Mg Tablet) 0.5 mg PO Q4H PRN PRN Reason: racing thoughts/anxiety Last Admin: 12/01/24 10:25 Dose: 0.5 mg Senna (Sennosides 8.6 Mg Tablet) 17.2 mg PO BEDTIME [facility] Last Admin: 11/30/24 20:06 Dose: 17.2 mg Trazodone HCl (Trazodone Hcl 50 Mg Tablet) 50 mg PO BEDTIME PRN PRN Reason: Insomnia Last Admin: 11/30/24 20:06 Dose: 50 mg Venlafaxine HCl (Venlafaxine Hcl Er 75 Mg Cap.Er.24h) 225 mg PO DAILY [facility] Last Admin: 12/01/24 08:33 Dose: 225 mg Allergies Allergies Allergy/AdvReac Type Severity Reaction Status Date / Time No Known Allergies Allergy Verified 11/20/24 11:06 Assessment & Plan Assessment & Plan (1) Postoperative anemia: Status: Acute Code(s): D64.9 - Anemia, unspecified Assessment and Plan: Depression with suicidal ideation Treatment plan per Psychiatry History of pituitary tumor Follow up with Neurology in [place] outpatient Status post left hip ORIF Continue aspirin b.i.d. for 42 days postop. Ambulate with walker Patient is weight bear as tolerated left hip H&H 10.3/32.9 Possible postoperative anemia, we will start iron Colace and senna due to risk for constipation with narcotics use-hold for loose stool Hypertension Continue with atenolol and losartan Blood pressure stable (2) Major depression, recurrent: Status: Acute Code(s): F33.9 - Major depressive disorder, recurrent, unspecified Plan Formulation/clinical reasoning: Overdose on prescription medication in November 05,one prior attempt on overdose medication when she was in college, increases depression, sleep and appetite was not great lately, increased stress from family with housing issue- Reports PTSD living with the [id number] it as a toxic relationship but still have to stay in the same house. Reports history of avel episode. Given above information, patient would be benefit for inpatient restrictive environment for own safety. Diagnostic, medication management, and refer to outpatient psychiatric services. Hospital course: 11/22- 11/23: Alert and oriented x4. No SI/SIB/HI/AVH: Mood is embarrassed . Continue with home medication. Educate patient on consistently taking her medication to avoid relapsed on depression and anxiety. Also avoid withdrawal symptoms for stopped abruptly her Effexor. It takes her for awhile to make decision to continue with this medication with those increased, but she agrees with the plan to increase from 150-225 mg daily in the morning. Started melatonin 6 mg at bedtime for insomnia. Could need more information to to identify if she has bipolar I versus bipolar II, versus MDD. We will do Collateral with her daughter Patient ambulate with a walker for own safety. 11/24 Patient reports that she is feeling a little better. She says she can tell this because I am not crying all the time.... Not over thinking so much... She feels that increased Effexor is helping and would like to continue with current treatment plan. 11/25: remains depressed, concerned about pituitary tumor Hx. probably bipolar II Dx, T/C mood stabilizer. increase effexor to 225 tomorrow. 11/26: probable bipolar II Dx discussed, pt agreeable to start lamictal 25 mg QHS for hypomania prophylaxis and anti-depressant efficacy in bipolar disorder. 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 feeling better with increasing doses of effexor. 11/27: thoughts racing. will try risperidone 0.5 mg PRN. prolactin WNL, reviewed with pt, low likelihood of pituitary adenoma recurrence. thinking about discharge, wants referrals for therapy and psych MD. D/W SW. 11/28: has not yet tried risperidone PRN for racing thoughts, was encouraged to do so in the next 24H. planning for discharge next week. mood continues to improve. continue current mgmt otherwise. 11/29: reports mood doing great, knowing will discharge next monday. will get lockbox for meds. daughter coming to get her. willing to try one-time risperidone dose to assess effect. otherwise continue current mgmt for now. 12/01: reports a difficult day with family, however, using skills and medications to help herself which she is satisfied with. Reason for continued inpatient stay Substantial Risk for: rapid decompensation Time Spent With Patient Time: Total time managing care of this patient today ____ minutes.
[2024-12-01 20:00] VITALS: BP 129/62; PULSE 68; RESP 16; TEMP 36.4; O2SAT 96
[2024-12-02 08:39] VITALS: BP 104/57; PULSE 75; RESP 16; TEMP 36.3; O2SAT 98
[2024-12-02] MEDS: Venlafaxine HCl ER 75 MG CAP.ER.24H 225 MG PO (08:42)
[2024-12-02] MEDS: Aspirin Enteric Coated 81 MG TABLET.DR PO ×2 (08:42→20:08)
[2024-12-02] MEDS: Ferrous Sulfate 324 MG TABLET.DR PO (08:42)
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
[2024-12-02 20:02] VITALS: BP 114/59; PULSE 67; RESP 16; TEMP 37.2; O2SAT 97
[2024-12-02] MEDS: oxyCODONE HCl Immed Release 5 MG TABLET PO (20:08)
[2024-12-03 07:53] VITALS: BP 132/71; PULSE 78; RESP 18; TEMP 36.9; O2SAT 98
[2024-12-03] MEDS: Aspirin Enteric Coated 81 MG TABLET.DR PO (08:04)
[2024-12-03] MEDS: Venlafaxine HCl ER 75 MG CAP.ER.24H 225 MG PO (08:04)
[2024-12-03] MEDS: Ferrous Sulfate 324 MG TABLET.DR PO (08:05)
[2024-12-03] MEDS: oxyCODONE HCl Immed Release 5 MG TABLET PO (13:54)
== END 2024-12-03 17:50 | disposition home or self-care (01) | DRG 885 ==
LOC: HO.ED 11-21 07:07 → HO.PGERI 11-22 14:46
PROVIDERS: Psychiatry & Neurology Psychiatry; Admitting Provider Social Worker; Emergency Provider Emergency Medicine; Visit Provider Social Worker
DX: F31.81 Bipolar II disorder (principal); R45.851 Suicidal ideations; I10 Essential (primary) hypertension; D64.89 Other specified anemias; Z98.84 Bariatric surgery status; Z91.51 Personal history of suicidal behavior; Z79.82 Long term (current) use of aspirin; Z79.899 Other long term (current) drug therapy
CPT/HCPCS: 36415; 70450; 73502; 80053; 80061; 80307; 81003; 82607; 82746; 83036; 83735; 84146; 84443; 85025; 93005; 97161; 99285; S9485

== ENCOUNTER → 2024-11-20 12:32 | Outpatient (BNV) | payer MEDICARE, SELFPAY | PROVIDERS: Emergency Provider Emergency Medicine; Visit Provider Radiology Diagnostic Radiology | DX: R41.82 Altered mental status, unspecified (principal); Z96.642 Presence of left artificial hip joint | CPT/HCPCS: 70450; 73502 ==

== ENCOUNTER → 2024-11-20 14:55 | Outpatient (BNV) | payer MEDICARE, SELFPAY | PROVIDERS: Emergency Provider Emergency Medicine; Visit Provider Internal Medicine Cardiovascular Disease | DX: R94.31 Abnormal electrocardiogram [ECG] [EKG] (principal); Z13.6 Encounter for screening for cardiovascular disorders | CPT/HCPCS: 93010 ==

== ENCOUNTER → 2024-11-22 12:46 | Outpatient (BNV) | payer OTHER, SELFPAY | PROVIDERS: Admitting Provider Social Worker; Emergency Provider Emergency Medicine; Visit Provider Nurse Practitioner Family | DX: D64.9 Anemia, unspecified (principal) | CPT/HCPCS: 99222 ==

== ENCOUNTER → 2024-11-22 12:46 | Outpatient (BNV) | payer OTHER, SELFPAY | PROVIDERS: Admitting Provider Social Worker; Emergency Provider Emergency Medicine; Visit Provider Psychiatry & Neurology Psychiatry | DX: F33.2 Major depressive disorder, recurrent severe without psychotic features (principal); T14.91XA Suicide attempt, initial encounter; Z96.649 Presence of unspecified artificial hip joint; D64.9 Anemia, unspecified | CPT/HCPCS: 90792; 99232 ==